=== PATIENT | male | born 1970 | race Caucasian/White ===

== ENCOUNTER 2017-07-25 07:45 | Outpatient (RCR) | payer MEDICARE ==
[~2017-07-25 07:45] MED LIST: ALOPHEN PILLS5 MG; ASPIR-LOW81 MG PO; ASPIR-TRIN325 MG PO; BACTRIM 400-801 EACH; BACTRIM DS TAB1 EACH PO; BUPROBAN150 MG; CEPHALEXIN500 M1; CHLORDIAZEPOX-1 EACH; CIPRO500 MG PO; CLOPIDOGREL75 MG PO; COLACE50 MG PO; COMBIVENT INH14.7 GM; HUMULIN N100 UNIT/1; HYDROCODON-ACE1 EAC9 PO; LEVAQUIN500 MG PO; LIPITOR20 MG; METFORMIN HCL500 MG PO; METOPROLOL SUCC25 MG; NEURONTIN300 MG PO; NICODERM CQ1 EACH TP; NITROGLYCERIN0.4 MG; PANTOPRAZOLE SO20 MG; PEPCID20 MG PO; ZYRTEC10 M3
[2017-07-25] MEDS ORDERED: LIDOCAINE 2% /EPINEPHRINE 20 ML SDV INJ ONE (13:36)
[2017-07-25] MEDS ORDERED: LIDOCAINE VISC 2% SOLN 15 ML UDC ONE (13:36)
== END 2017-08-04 ==
LOC: WCC 07:45
PROVIDERS: ATTEND Plastic Surgery
DX: T87.89 Other complications of amputation stump (principal); E11.649 Type 2 diabetes mellitus with hypoglycemia without coma; E11.59 Type 2 diabetes mellitus with other circulatory complications; L97.529 Non-pressure chronic ulcer of other part of left foot with unspecified severity; S31.829A Unspecified open wound of left buttock, initial encounter; B96.89 Other specified bacterial agents as the cause of diseases classified elsewhere; I10 Essential (primary) hypertension; I70.202 Unspecified atherosclerosis of native arteries of extremities, left leg; I79.8 Other disorders of arteries, arterioles and capillaries in diseases classified elsewhere; I87.2 Venous insufficiency (chronic) (peripheral)
CPT/HCPCS: 11042; 99204; J2001

== ENCOUNTER 2019-06-06 22:50 | Inpatient (IN) | payer MEDICARE ==
[~2019-06-06] VITALS: Ht 185.4 cm; Wt 95.3 kg
--- OUTSIDE RECORDS SUMMARY | 2019-06-06 22:57 | XMS REPORT ---
Author Author [facility] Address Unknown Phone Unavailable Care Team Providers Care Fur Cleaner Name Role Phone Unavailable Unavailable Payers Payer Name Policy Type Policy Number Effective Date Expiration Date Problems This patient has no known problems. Allergies, Adverse Reactions, Alerts Allergy Name Allergy Type Status Severity Reaction(s) Onset Date Inactive Date Treating Clinician Comments No Known Allergies DA Active U 2019-01-30 00:00:00 No Known Allergies DA Active U 2013-10-11 00:00:00 Medications This patient has no known medications. Encounters Start Date/Time End Date/Time Encounter Type Admission Type Attending Clinicians Care Facility Care Department Encounter ID 2018-12-23 12:46:00 2018-12-23 10:37:00 Inpatient [id number] 2018-10-23 20:46:00 2018-10-23 18:14:00 Inpatient [facility]10 Results Test Description Test Time Test Comments Text Results Atomic Results Result Comments GLUBED 2019-02-02 12:23:00 GLUBED (test code=GLUBED) 167 MG/DL 70-110 Performed by certified yarn mercerizer operator at [facility] CBC W/AUTO [id number] 08:00:00* Test Item Value Reference Range Comments WHITE BLOOD CELL (test code=WBC) 4.61 x10 3/uL 4.5-11.0 RED BLOOD CELL (test code=RBC) 3.38 x10 6/uL 4.00-5.60 HEMOGLOBIN (test code=HGB) 8.3 g/dL 12.5-16.9 HEMATOCRIT (test code=HCT) 26.7 % 37.5-50.7 MEAN CELL VOLUME (test code=MCV) 79.0 fL 81.0-99.0 MEAN CELL HGB (test code=MCH) 24.6 pg 27.0-33.0 MEAN CELL HGB CONCETRATION (test code=MCHC) 31.1 g/dL 33.0-37.0 RED CELL DISTRIBUTION WIDTH CV (test code=RDW) 15.9 % 11.5-14.5 RED CELL DISTRIBUTION WIDTH SD (test code=RDW-SD) 45.4 fL 37.0-54.0 PLATELET COUNT (test code=PLT) 392 x10 3/uL 150-400 MEAN PLATELET VOLUME (test code=MPV) 9.7 fL 7.0-9.0 NEUTROPHIL % (test code=NT%) 58.8 % 56.0-77.0 IMMATURE GRANULOCYTE % (test code=IG%) 0.9 % 0.0-2.0 LYMPHOCYTE % (test code=LY%) 27.1 % 14.0-32.0 MONOCYTE % (test code=MO%) 8.0 % 4.8-9.0 EOSINOPHIL % (test code=EO%) 4.3 % 0.3-3.7 BASOPHIL % (test code=BA%) 0.9 % 0.0-2.0 NUCLEATED RBC % (test code=NRBC%) 0.0 % 0-0 NEUTROPHIL # (test code=NT#) 2.71 x10 3/uL 2.0-7.6 IMMATURE GRANULOCYTE # (test code=IG#) 0.04 x10 3/uL 0.00-0.03 LYMPHOCYTE # (test code=LY#) 1.25 x10 3/uL 1.0-3.8 MONOCYTE # (test code=MO#) 0.37 x10 3/uL 0.1-0.8 EOSINOPHIL # (test code=EO#) 0.20 x10 3/uL 0.0-0.2 BASOPHIL # (test code=BA#) 0.04 x10 3/uL 0.0-0.2 NUCLEATED RBC # (test code=NRBC#) 0.00 x10 3/uL 0.0-0.1 MANUAL DIFF REQUIRED (test code=MDIFF) NO COMMENTS: Daily while on [id number] 07:52:00* Test Item Value Reference Range Comments VANCOMYCIN (test code=VANCO) 17.6 mcg/mL [id number] 07:31:00* Test Item Value Reference Range Comments GLUBED (test code=GLUBED) 160 MG/DL 70-110 Performed by certified yarn mercerizer operator at [facility] [id number] 20:28:00* Test Item Value Reference Range Comments GLUBED (test code=GLUBED) 222 MG/DL 70-110 Performed by certified yarn mercerizer operator at [facility] [id number] 16:52:00* Test Item Value Reference Range Comments PREALBUMIN (test code=PREALB) 13.4 mg/dL 16.0-40.0 VITAMIN D [id number] 16:52:00* Test Item Value Reference Range Comments VITAMIN D 25-HYDROXY (test code=VITD25) 7.8 ng/mL 30-100 [id number] 16:31:00* Test Item Value Reference Range Comments GLUBED (test code=GLUBED) 184 MG/DL 70-110 Performed by certified yarn mercerizer operator at [facility] VANCOMYCIN [id number] 14:27:00* Test Item Value Reference Range Comments VANCOMYCIN TROUGH (test code=VANCT) 30.2 mcg/mL 10.0-20.0 10-15 mcg/mL - Cellulitis, Urinary Tract Infection. 15-20 mcg/mL - Bacteremia, Infective Endocarditis, Meningitis, Osteomyelitis, Pneumonia, Severe Skin/Soft- Tissue Infection, Spinal Abscess. COMMENTS: HOLD VANCOMYCIN DOSE IF LEVEL >16, CALL PHARMACY FOR DOSE [id number] 14:25:00* Test Item Value Reference Range Comments PREALBUMIN (test code=PREALB) 13.4 mg/dL 16.0-40.0 VITAMIN D [id number] 14:25:00* Test Item Value Reference Range Comments VITAMIN D 25-HYDROXY (test code=VITD25) ng/mL 30-100 COMPREHENSIVE METABOLIC [id number] 14:18:00* Test Item Value Reference Range Comments SODIUM (test code=NA) 139 mEq/L 134-147 POTASSIUM (test code=K) 3.6 mEq/L 3.4-5.0 CHLORIDE (test code=CL) 108 mEq/L 100-108 CARBON DIOXIDE (test code=CO2) 28 mEq/L 21-33 ANION GAP (test code=GAP) 7 0-20 GLUCOSE (test code=GLU) 214 mg/dL 70-110 BLOOD UREA NITROGEN (test code=BUN) 10 mg/dL 7-18 GLOMERULAR FILTRATION RATE (test code=GFR) 90.8 95-105 Units of measure=ml/min/1.73 m2 CREATININE (test code=CREAT) 0.9 mg/dL 0.6-1.3 TOTAL PROTEIN (test code=PROT) 5.0 g/dL 6.4-8.2 ALBUMIN (test code=ALB) 1.40 g/dL 3.4-5.0 CALCIUM (test code=CA) 7.7 mg/dL 8.0-10.5 BILIRUBIN TOTAL (test code=BILT) 0.2 MG/DL <1.5 SGOT/AST (test code=AST) 16 IUnit/L 15-37 SGPT/ALT (test code=ALT) 12 IUnit/L 15-65 ALKALINE PHOSPHATASE TOTAL (test code=ALKP) 74 IUnit/L 20-125 CBC W/AUTO [id number] 14:01:00* Test Item Value Reference Range Comments WHITE BLOOD CELL (test code=WBC) 5.00 x10 3/uL 4.5-11.0 RED BLOOD CELL (test code=RBC) 3.50 x10 6/uL 4.00-5.60 HEMOGLOBIN (test code=HGB) 8.6 g/dL 12.5-16.9 HEMATOCRIT (test code=HCT) 27.7 % 37.5-50.7 MEAN CELL VOLUME (test code=MCV) 79.1 fL 81.0-99.0 MEAN CELL HGB (test code=MCH) 24.6 pg 27.0-33.0 MEAN CELL HGB CONCETRATION (test code=MCHC) 31.0 g/dL 33.0-37.0 RED CELL DISTRIBUTION WIDTH CV (test code=RDW) 15.9 % 11.5-14.5 RED CELL DISTRIBUTION WIDTH SD (test code=RDW-SD) 45.2 fL 37.0-54.0 PLATELET COUNT (test code=PLT) 434 x10 3/uL 150-400 MEAN PLATELET VOLUME (test code=MPV) 9.7 fL 7.0-9.0 NEUTROPHIL % (test code=NT%) 69.0 % 56.0-77.0 IMMATURE GRANULOCYTE % (test code=IG%) 0.6 % 0.0-2.0 LYMPHOCYTE % (test code=LY%) 19.6 % 14.0-32.0 MONOCYTE % (test code=MO%) 6.4 % 4.8-9.0 EOSINOPHIL % (test code=EO%) 3.6 % 0.3-3.7 BASOPHIL % (test code=BA%) 0.8 % 0.0-2.0 NUCLEATED RBC % (test code=NRBC%) 0.0 % 0-0 NEUTROPHIL # (test code=NT#) 3.45 x10 3/uL 2.0-7.6 IMMATURE GRANULOCYTE # (test code=IG#) 0.03 x10 3/uL 0.00-0.03 LYMPHOCYTE # (test code=LY#) 0.98 x10 3/uL 1.0-3.8 MONOCYTE # (test code=MO#) 0.32 x10 3/uL 0.1-0.8 EOSINOPHIL # (test code=EO#) 0.18 x10 3/uL 0.0-0.2 BASOPHIL # (test code=BA#) 0.04 x10 3/uL 0.0-0.2 NUCLEATED RBC # (test code=NRBC#) 0.00 x10 3/uL 0.0-0.1 MANUAL DIFF REQUIRED (test code=MDIFF) NO COMMENTS: Daily while on [id number] 12:55:00* Test Item Value Reference Range Comments GLUBED (test code=GLUBED) 221 MG/DL 70-110 Performed by certified yarn mercerizer operator at [facility] [id number] 07:33:00* Test Item Value Reference Range Comments GLUBED (test code=GLUBED) 183 MG/DL 70-110 Performed by certified yarn mercerizer operator at [facility] [id number] 23:42:00* Test Item Value Reference Range Comments GLUBED (test code=GLUBED) 165 MG/DL 70-110 Performed by certified yarn mercerizer operator at [facility] [id number] 17:55:00* Test Item Value Reference Range Comments GLUBED (test code=GLUBED) 213 MG/DL 70-110 Performed by certified yarn mercerizer operator at [facility] PROTHROMBIN [id number] 17:08:00* Test Item Value Reference Range Comments PROTHROMBIN TIME PATIENT (test code=PTP) 11.7 SECONDS 9.3-12.9 INTERNATIONAL NORMAL RATIO (test code=INR) 1.1 0.8-1.2 TARGET INR BY INDICATION Indication INR1. Prophylaxis of venous thrombosis 2.0 - 3.0 (orthopedic surgery), Prophylaxis of venous thrombosis (other than high-risk surgery), Treatment of Deep Vein Thrombosis/Pulmonary Embolism, Prevention of systemic embolism - Tissue heart valves, Acute Myocardial Infarction (to prevent systemic embolism), Valvular heart disease, Atrial Fibrillation, Bileaflet mechanical valve in aortic position.2. Mechanical prosthetic valves (high risk), 2.5 - 3.5 Presence of Lupus Anticoagulant or Antiphospholipid Antibodies, Prevention of systemic embolism - Acute Myocardial Infarction (to prevent recurrent infarct). COMMENTS: IF NOT ALREADY DONE WITHIN THE LAST 24 HOURSTHROMBOPLASTIN TIME [id number] 17:08:00* Test Item Value Reference Range Comments THROMBOPLASTIN TIME PARTIAL (test code=PTT) 31.5 Seconds 25.0-39.5 Therapeutic Range: 50.4 - 88.3 Seconds Effective 06/20/2018 COMMENTS: IF NOT ALREADY DONE WITHIN THE LAST 24 HOURSCBC W/AUTO [id number] 16:39:00* Test Item Value Reference Range Comments WHITE BLOOD CELL (test code=WBC) 5.89 x10 3/uL 4.5-11.0 RED BLOOD CELL (test code=RBC) 3.76 x10 6/uL 4.00-5.60 HEMOGLOBIN (test code=HGB) 9.2 g/dL 12.5-16.9 HEMATOCRIT (test code=HCT) 30.1 % 37.5-50.7 MEAN CELL VOLUME (test code=MCV) 80.1 fL 81.0-99.0 MEAN CELL HGB (test code=MCH) 24.5 pg 27.0-33.0 MEAN CELL HGB CONCETRATION (test code=MCHC) 30.6 g/dL 33.0-37.0 RED CELL DISTRIBUTION WIDTH CV (test code=RDW) 15.4 % 11.5-14.5 RED CELL DISTRIBUTION WIDTH SD (test code=RDW-SD) 44.1 fL 37.0-54.0 PLATELET COUNT (test code=PLT) 458 x10 3/uL 150-400 MEAN PLATELET VOLUME (test code=MPV) 9.6 fL 7.0-9.0 NEUTROPHIL % (test code=NT%) 66.1 % 56.0-77.0 IMMATURE GRANULOCYTE % (test code=IG%) 0.5 % 0.0-2.0 LYMPHOCYTE % (test code=LY%) 22.6 % 14.0-32.0 MONOCYTE % (test code=MO%) 7.3 % 4.8-9.0 EOSINOPHIL % (test code=EO%) 2.5 % 0.3-3.7 BASOPHIL % (test code=BA%) 1.0 % 0.0-2.0 NUCLEATED RBC % (test code=NRBC%) 0.0 % 0-0 NEUTROPHIL # (test code=NT#) 3.89 x10 3/uL 2.0-7.6 IMMATURE GRANULOCYTE # (test code=IG#) 0.03 x10 3/uL 0.00-0.03 LYMPHOCYTE # (test code=LY#) 1.33 x10 3/uL 1.0-3.8 MONOCYTE # (test code=MO#) 0.43 x10 3/uL 0.1-0.8 EOSINOPHIL # (test code=EO#) 0.15 x10 3/uL 0.0-0.2 BASOPHIL # (test code=BA#) 0.06 x10 3/uL 0.0-0.2 NUCLEATED RBC # (test code=NRBC#) 0.00 x10 3/uL 0.0-0.1 MANUAL DIFF REQUIRED (test code=MDIFF) NO COMMENTS: IF NOT ALREADY DONE WITHIN THE LAST 24 [id number] 13:44:00 * Test Item Value Reference Range Comments GLUBED (test code=GLUBED) 196 MG/DL 70-110 Performed by certified yarn mercerizer operator at [facility] [id number] 11:54:00* Test Item Value Reference Range Comments GLUBED (test code=GLUBED) 192 MG/DL 70-110 Performed by certified yarn mercerizer operator at [facility] [id number] 08:33:00* Test Item Value Reference Range Comments GLUBED (test code=GLUBED) 241 MG/DL 70-110 Performed by certified yarn mercerizer operator at [facility] BASIC METABOLIC [id number] 07:55:00* Test Item Value Reference Range Comments SODIUM (test code=NA) 141 mEq/L 134-147 POTASSIUM (test code=K) 3.1 mEq/L 3.4-5.0 CHLORIDE (test code=CL) 109 mEq/L 100-108 CARBON DIOXIDE (test code=CO2) 28 mEq/L 21-33 ANION GAP (test code=GAP) 7 0-20 GLUCOSE (test code=GLU) 221 mg/dL 70-110 BLOOD UREA NITROGEN (test code=BUN) 11 mg/dL 7-18 GLOMERULAR FILTRATION RATE (test code=GFR) 90.8 95-105 Units of measure=ml/min/1.73 m2 CREATININE (test code=CREAT) 0.9 mg/dL 0.6-1.3 CALCIUM (test code=CA) 7.6 mg/dL 8.0-10.5 [id number] 21:13:00* Test Item Value Reference Range Comments GLUBED (test code=GLUBED) 240 MG/DL 70-110 Performed by certified yarn mercerizer operator at [facility] BASIC METABOLIC [id number] 12:38:00* Test Item Value Reference Range Comments SODIUM (test code=NA) 141 mEq/L 134-147 POTASSIUM (test code=K) 3.1 mEq/L 3.4-5.0 CHLORIDE (test code=CL) 108 mEq/L 100-108 CARBON DIOXIDE (test code=CO2) 29 mEq/L 21-33 ANION GAP (test code=GAP) 7 0-20 GLUCOSE (test code=GLU) 221 mg/dL 70-110 BLOOD UREA NITROGEN (test code=BUN) 10 mg/dL 7-18 GLOMERULAR FILTRATION RATE (test code=GFR) 80.4 95-105 Units of measure=ml/min/1.73 m2 CREATININE (test code=CREAT) 1.0 mg/dL 0.6-1.3 CALCIUM (test code=CA) 7.6 mg/dL 8.0-10.5 BASIC METABOLIC [id number] 12:35:00* Test Item Value Reference Range Comments SODIUM (test code=NA) 141 mEq/L 134-147 POTASSIUM (test code=K) 3.1 mEq/L 3.4-5.0 CHLORIDE (test code=CL) 108 mEq/L 100-108 CARBON DIOXIDE (test code=CO2) 29 mEq/L 21-33 ANION GAP (test code=GAP) 7 0-20 GLUCOSE (test code=GLU) 221 mg/dL 70-110 BLOOD UREA NITROGEN (test code=BUN) 10 mg/dL 7-18 GLOMERULAR FILTRATION RATE (test code=GFR) 95-105 CREATININE (test code=CREAT) mg/dL 0.6-1.3 CALCIUM (test code=CA) 7.6 mg/dL 8.0-10.5 CBC W/AUTO [id number] 12:28:00* Test Item Value Reference Range Comments WHITE BLOOD CELL (test code=WBC) 5.87 x10 3/uL 4.5-11.0 RED BLOOD CELL (test code=RBC) 3.69 x10 6/uL 4.00-5.60 HEMOGLOBIN (test code=HGB) 9.0 g/dL 12.5-16.9 HEMATOCRIT (test code=HCT) 29.2 % 37.5-50.7 MEAN CELL VOLUME (test code=MCV) 79.1 fL 81.0-99.0 MEAN CELL HGB (test code=MCH) 24.4 pg 27.0-33.0 MEAN CELL HGB CONCETRATION (test code=MCHC) 30.8 g/dL 33.0-37.0 RED CELL DISTRIBUTION WIDTH CV (test code=RDW) 15.0 % 11.5-14.5 RED CELL DISTRIBUTION WIDTH SD (test code=RDW-SD) 42.8 fL 37.0-54.0 PLATELET COUNT (test code=PLT) 443 x10 3/uL 150-400 MEAN PLATELET VOLUME (test code=MPV) 9.8 fL 7.0-9.0 NEUTROPHIL % (test code=NT%) 70.3 % 56.0-77.0 IMMATURE GRANULOCYTE % (test code=IG%) 0.7 % 0.0-2.0 LYMPHOCYTE % (test code=LY%) 18.2 % 14.0-32.0 MONOCYTE % (test code=MO%) 6.1 % 4.8-9.0 EOSINOPHIL % (test code=EO%) 3.7 % 0.3-3.7 BASOPHIL % (test code=BA%) 1.0 % 0.0-2.0 NUCLEATED RBC % (test code=NRBC%) 0.0 % 0-0 NEUTROPHIL # (test code=NT#) 4.12 x10 3/uL 2.0-7.6 IMMATURE GRANULOCYTE # (test code=IG#) 0.04 x10 3/uL 0.00-0.03 LYMPHOCYTE # (test code=LY#) 1.07 x10 3/uL 1.0-3.8 MONOCYTE # (test code=MO#) 0.36 x10 3/uL 0.1-0.8 EOSINOPHIL # (test code=EO#) 0.22 x10 3/uL 0.0-0.2 BASOPHIL # (test code=BA#) 0.06 x10 3/uL 0.0-0.2 NUCLEATED RBC # (test code=NRBC#) 0.00 x10 3/uL 0.0-0.1 MANUAL DIFF REQUIRED (test code=MDIFF) NO [id number] 07:46:00* Test Item Value Reference Range Comments GLUBED (test code=GLUBED) 179 MG/DL 70-110 Performed by certified yarn mercerizer operator at [facility] [id number] 23:32:00* Test Item Value Reference Range Comments GLUBED (test code=GLUBED) 266 MG/DL 70-110 Performed by certified yarn mercerizer operator at [facility] [id number] 23:31:00* Test Item Value Reference Range Comments GLUBED (test code=GLUBED) 240 MG/DL 70-110 Performed by certified yarn mercerizer operator at [facility] [id number] 16:38:00* Test Item Value Reference Range Comments GLUBED (test code=GLUBED) 230 MG/DL 70-110 Performed by certified yarn mercerizer operator at [facility] - XR CHEST 1 [id number] 15:14:00 FAX: Amos Bishop DO [phone] [place]: St: [facility] FAX: Juan David Jean DO [phone] Name: VANDANA PASCAL JR [facility] : 1970 Age/S: 48/M [address] [place] [address] Unit #: [id number] Loc: G.ERS2 [place] [address] Phys: Amos Bush DO Acct: [id number] Dis Date: Status: REG ER PHONE #: [phone] Exam Date: 01/29/2019 1510 FAX #: [phone] Reason: s/p R IJ place EXAMS: CPT CODE: [id number] XR CHEST 1 V 88313 CHEST, ONE VIEW: HISTORY: Postcentral line placement COMPARISON EXAM(S): Chest x-rays dating back to 01/25/2019 FINDINGS: This single portable view was obtained at 1459 hours on 01/29/2019 and shows placement of a right IJ central line with tip of the catheter projected over the middle third of the SVC. No evidence of pneumothorax. No acute infiltrates or effusions. Vascular stents are projected over the right side of the superior mediastinum and the rig ht axillary vessels. IMPRESSION: 1. Placement of right IJ line as described above, without complication. 2. No acute changes identified. 3. No other change compared to the examination obtained earlier today. SL:01 at 1514 Reported and signed by: Clay Crews M.D. CC: Amos Bush DO; Juan David Mckeon DO Technologist: LIZZY Cotto RT(R); RT Harshal(R) Trnmdjeanette Date/Time/By: 01/29/2019 (4207) : By: Abdon PAGE 1 [place] d Report DRUGS OF ABUSE SCREEN [id number] 12:58:00* Test Item Value Reference Range Comments URN COCAINE (test code=COCAURN) POSITIVE NEGATIVE URN CANNABINOIDS (test code=CANNABURN) POSITIVE NEGATIVE URN AMPHETAMINE (test code=AMPHETURN) NEGATIVE NEGATIVE URN BARBITURATE (test code=BARBITURN) NEGATIVE NEGATIVE URN BENZODIAZEPINE (test code=BENZOURN) POSITIVE NEGATIVE Cut-off value:200 ng/mL URN OPIATES (test code=OPIATURN) POSITIVE NEGATIVE Cut-off value:2000 ng/mL URN PHENCYCLIDINE (PCP) (test code=PHENCURN) NEGATIVE NEGATIVE Cutoffs:Barbiturates 200 ng/mLBenzodiazepines 200 ng/mLTHC Cannabinoids 50 ng/mLOpiates(Morphine) 2000 ng/mLAmphetamine 1000 ng/mLCocaine 300 ng/mLPCP phencyclidine 25 ng/mL Unconfirmed screening results shouldnot be used for non-medical purposes. DRUGS OF ABUSE SCREEN [id number] 12:53:00* Test Item Value Reference Range Comments URN COCAINE (test code=COCAURN) NEGATIVE URN CANNABINOIDS (test code=CANNABURN) NEGATIVE URN AMPHETAMINE (test code=AMPHETURN) NEGATIVE NEGATIVE URN BARBITURATE (test code=BARBITURN) NEGATIVE NEGATIVE URN BENZODIAZEPINE (test code=BENZOURN) NEGATIVE URN OPIATES (test code=OPIATURN) NEGATIVE URN PHENCYCLIDINE (PCP) (test code=PHENCURN) NEGATIVE NEGATIVE Cutoffs:Barbiturates 200 ng/mLBenzodiazepines 200 ng/mLTHC Cannabinoids 50 ng/mLOpiates(Morphine) 2000 ng/mLAmphetamine 1000 ng/mLCocaine 300 ng/mLPCP phencyclidine 25 ng/mL Unconfirmed screening results shouldnot be used for non-medical purposes. UA RFLX MICR CULT IF [id number] 12:24:00* Test Item Value Reference Range Comments UA COLOR (test code=COLU) YELLOW YEL/STRAW UA APPEARANCE (test code=APPU) SL CLOUDY CLEAR UA GLUCOSE DIPSTICK (test code=DGLUU) 3+ NEGATIVE UA BILIRUBIN DIPSTICK (test code=BILU) NEGATIVE NEGATIVE UA KETONE DIPSTICK (test code=KETU) NEGATIVE NEGATIVE UA SPECIFIC GRAVITY (test code=SGU) 1.027 1.005-1.030 UA BLOOD DIPSTICK (test code=TABITHA) NEGATIVE NEGATIVE UA PH DIPSTICK (test code=RAJESH) 6.0 5.0-7.0 UA PROTEIN DIPSTICK (test code=PROU) 3+ NEGATIVE UA UROBILINIOGEN DIPSTICK (test code=URO) 0.2 mg/dL 0.2-1.0 UA NITRITE DIPSTICK (test code=BRIE) NEGATIVE NEGATIVE UA LEUKOCYTE ESTERASE DIPSTICK (test code=LEUU) NEGATIVE NEGATIVE UA WBC (test code=WBCU) 10-20 WBC/HPF 0-3 UA RBC (test code=RBCU) 4-10 RBC/HPF 0-3 UA WBC NO REFLEX (test code=WBCUCL) 10-20 WBC/HPF 0-3 UA BACTERIA (test code=BACU) NONE SEEN /HPF NONE SEEN UA SQUAMOUS CELLS (test code=SQU) 0-5 /HPF NONE SEEN UA MUCUS (test code=MUCU) TRACE /LPF NONE SEEN Indication for culture: Sev. Sepsis-no other src Dysuria/FrequencySpecim en Description: BAGGED- XR CHEST 1 [id number] 12:12:00 FAX: Amos Bishop DO [phone] [place]: St: [facility] FAX: Juan David Jean DO [phone] Name: VANDANA PASCAL JR [facility] : 1970 Age/S: 48/M [address] [place] [address] Unit #: [id number] Loc: G.ERS2 [facility] [address] Phys: Amos Bush DO Acct: [id number] Dis Date: Status: REG ER PHONE #: [phone] Exam Date: 01/29/2019 1159 FAX #: [phone] Reason: sepsis EXAMS: CPT CODE: [id number] XR CHEST 1 V 92451 Study: - XR CHEST 1 V 01/29/2019 10:34 AM Patient Name: VANDANA PASCAL JR MR: [id number] : 1970; Age: 48 years y/o Male Ordering Physician: Amos Bush DO Clinical Indic ation: sepsis Comparison: January 28, 2019 x-ray FI NDINGS LUNGS: The lungs are clear of consolidation, pleural effusi on, and pneumothorax. HEART AND MEDIASTINUM: Normal size hea rt. 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 LINES: None. OSSEOUS STRUCTURES: No fracture, dislocation, or suspicious focal osse ous lesion. OTHER: Vascular stents in the region of the right subc lavian artery.. IMPRESSION: No acute a bnormality as above discussed. SL: [id number] at 12 12 Reported and signed by: Chase Lopez M.D. CC: Maximo Bush DO; Juan David Mckeon DO Technologist: Joanne webb RT(R)R Trnscrd Date/Time/By: 01/29/2019 (12 12) : By: [email or web address] Orig Print D/T: S: 01/29/2019 (8815) PAGE 1 Signed Report CBC W/AUTO [id number] 11:26:00* Test Item Value Reference Range Comments WHITE BLOOD CELL (test code=WBC) 6.20 x10 3/uL 4.5-11.0 RED BLOOD CELL (test code=RBC) 4.16 x10 6/uL 4.00-5.60 HEMOGLOBIN (test code=HGB) 10.2 g/dL 12.5-16.9 HEMATOCRIT (test code=HCT) 32.7 % 37.5-50.7 MEAN CELL VOLUME (test code=MCV) 78.6 fL 81.0-99.0 MEAN CELL HGB (test code=MCH) 24.5 pg 27.0-33.0 MEAN CELL HGB CONCETRATION (test code=MCHC) 31.2 g/dL 33.0-37.0 RED CELL DISTRIBUTION WIDTH CV (test code=RDW) 14.8 % 11.5-14.5 RED CELL DISTRIBUTION WIDTH SD (test code=RDW-SD) 42.2 fL 37.0-54.0 PLATELET COUNT (test code=PLT) 549 x10 3/uL 150-400 MEAN PLATELET VOLUME (test code=MPV) 9.9 fL 7.0-9.0 NEUTROPHIL % (test code=NT%) 73.8 % 56.0-77.0 IMMATURE GRANULOCYTE % (test code=IG%) 0.5 % 0.0-2.0 LYMPHOCYTE % (test code=LY%) 17.9 % 14.0-32.0 MONOCYTE % (test code=MO%) 5.0 % 4.8-9.0 EOSINOPHIL % (test code=EO%) 1.8 % 0.3-3.7 BASOPHIL % (test code=BA%) 1.0 % 0.0-2.0 NUCLEATED RBC % (test code=NRBC%) 0.0 % 0-0 NEUTROPHIL # (test code=NT#) 4.58 x10 3/uL 2.0-7.6 IMMATURE GRANULOCYTE # (test code=IG#) 0.03 x10 3/uL 0.00-0.03 LYMPHOCYTE # (test code=LY#) 1.11 x10 3/uL 1.0-3.8 MONOCYTE # (test code=MO#) 0.31 x10 3/uL 0.1-0.8 EOSINOPHIL # (test code=EO#) 0.11 x10 3/uL 0.0-0.2 BASOPHIL # (test code=BA#) 0.06 x10 3/uL 0.0-0.2 NUCLEATED RBC # (test code=NRBC#) 0.00 x10 3/uL 0.0-0.1 MANUAL DIFF REQUIRED (test code=MDIFF) NO TROPONIN-I [id number] 11:22:00* Test Item Value Reference Range Comments TROPONIN-I RAPID (test code=TROPIRAP) 0.07 ng/mL 0.00-0.08 Performed by certified yarn mercerizer operator at [facility] Negative: <=0.08 Positive: >=0.09An elevated troponin value alone is not sufficient todiagnose a myocardial infarction. Rather, the patient sclinical presentation (history, physical exam) and ECGshould be used in conjunction with troponin in thediagnostic evaluation of suspected myocardial infarction. Aserial sampling protocol is recommended to facilitate the identification of temporal changes in troponin levels characteristic of NE. LACTIC ACID [id number] 11:15:00* Test Item Value Reference Range Comments LACTIC ACID POC (test code=LACTP) 1.8 MMOL/L 0.90-1.70 Performed by certified yarn mercerizer operator at [facility] CHEMISTRY 8 [id number] 11:14:00* Test Item Value Reference Range Comments ISTAT-SODIUM (test code=NAP) MMOL/L 134-147 ISTAT-POTASSIUM (test code=KP) MMOL/L 3.4-5.0 ISTAT-CHLORIDE (test code=CLP) MMOL/L 100-108 ISTAT CARBON DIOXIDE (test code=ISTAT-CO2) mmol/L 21-33 ISTAT CALCIUM IONIZED (test code=ISTAT-CORY) MG/DL 1.12-1.32 ISTAT-GLUCOSE (test code=GLUP) MG/DL 70-110 ISTAT-BUN (test code=BUNP) MG/DL 7-18 BEDSIDE CREATININE (test code=CREATBED) MG/DL 0.6-1.3 GLOMERULAR FILTRATION RATE POC (test code=GFRBED) 69 ML/MIN CHEMISTRY 8 [id number] 11:14:00* Test Item Value Reference Range Comments ISTAT-SODIUM (test code=NAP) 138 MMOL/L 134-147 ISTAT-POTASSIUM (test code=KP) 3.3 MMOL/L 3.4-5.0 ISTAT-CHLORIDE (test code=CLP) 101 MMOL/L 100-108 Performed by certified yarn mercerizer operator at [facility] ISTAT CARBON DIOXIDE (test code=ISTAT-CO2) 27.0 mmol/L 21-33 ISTAT CALCIUM IONIZED (test code=ISTAT-CORY) 1.09 MG/DL 1.12-1.32 ISTAT-GLUCOSE (test code=GLUP) 274 MG/DL 70-110 ISTAT-BUN (test code=BUNP) 11 MG/DL 7-18 BEDSIDE CREATININE (test code=CREATBED) 1.2 MG/DL 0.6-1.3 GLOMERULAR FILTRATION RATE POC (test code=GFRBED) 69 ML/MIN BASIC METABOLIC [id number] 14:39:00* Test Item Value Reference Range Comments SODIUM (test code=NA) 140 mmol/L 136-145 POTASSIUM (test code=K) 3.3 mmol/L 3.5-5.1 CHLORIDE (test code=CL) 105.0 mmol/L 98-107 CARBON DIOXIDE (test code=CO2) 29.0 mmol/L 21-32 ANION GAP (test code=GAP) 9.3 10-20 GLUCOSE (test code=GLU) 198 mg/dL 74-106 BLOOD UREA NITROGEN (test code=BUN) 14 mg/dL 7-18 GLOMERULAR FILTRATION RATE (test code=GFR) > 60 mL/min >=60 Estimated GFR by using Modified MDRD formula.Chronic kidney disease is defined as either kidney damageor GFR <60 mL/min/1.73 m2 for >3 months. CREATININE (test code=CREAT) 1.00 mg/dL 0.7-1.3 BUN/CREATININE RATIO (test code=BUN/CREA) 13.3 10-20 CALCIUM (test code=CA) 8.5 mg/dL 8.5-10.1 [id number] 14:39:00* Test Item Value Reference Range Comments TROPONIN-I (test code=TROPI) 0.237 ng/mL 0-0.045 Results called to [id number] by RICH 01/28/19 1438Critical results verified and read back by Nurse? Y LACTIC [id number] 14:29:00* Test Item Value Reference Range Comments LACTIC ACID (test code=LACT) 1.9 mmol/L 0.4-1.9 BASIC METABOLIC [id number] 14:28:00* Test Item Value Reference Range Comments SODIUM (test code=NA) 140 mmol/L 136-145 POTASSIUM (test code=K) 3.3 mmol/L 3.5-5.1 CHLORIDE (test code=CL) 105.0 mmol/L 98-107 CARBON DIOXIDE (test code=CO2) mmol/L 21-32 ANION GAP (test code=GAP) 10-20 GLUCOSE (test code=GLU) mg/dL 74-106 BLOOD UREA NITROGEN (test code=BUN) mg/dL 7-18 GLOMERULAR FILTRATION RATE (test code=GFR) mL/min >=60 CREATININE (test code=CREAT) mg/dL 0.7-1.3 BUN/CREATININE RATIO (test code=BUN/CREA) 10-20 CALCIUM (test code=CA) mg/dL 8.5-10.1 [id number] 14:28:00* Test Item Value Reference Range Comments TROPONIN-I (test code=TROPI) ng/mL 0-0.045 - CT LOWER EXTRM W/O C [id number] 14:27:00 Name: VANDANA PASCAL JR [facility] : 1970 Age/S: 48 / M [place] Unit #: [id number] Loc: [place] [address] Phys: Evi Spencer DO Acct: [id number] Dis Date: Status: ADM IN PHONE #: [phone] Exam Date: 01/28/2019 1350 FAX #: [phone] Reason: leg pain EXAMS: CPT CODE: [id number] CT LOWER EXTRM W/[place] [address] HISTORY: wound TECHNIQUE: 2.[address] of the right femur/thigh without contrast. Sagittal and coronal reformatted images were generated. Automated exposure control for dose reduction. COMPARISON: 01/23/19 FINDINGS: Right femur and other regional osseous structures are intact. No cortical erosion or periosteal reaction. Mild degenerative changes of the right hip and knee. Right thigh musculature is grossly normal in configuration. Right inguinal and medial distal thigh wound with assoc iated skin magalis. Small soft tissue emphysema within the medial thigh. N o fluid collection. Diffuse subcutaneous edema. Femorofemoral bypass; unab le to evaluate without contrast. Left popliteal artery stent. IMPRESSION: No significant interval change. Right inguinal and medial distal thigh wound with subcutaneous edema. No assoc iated fluid collection. LOCATION: LP at 1427 Reported and signed by: Amalia Patel D.O. CC: Juan David Verde; Evi Spencer DO Technologist:Ruchi hong RT(R),CT CTDI: DLP: Trnscb Date/Time: 01/28/2019 (1427) siddhartha [email or web address] Orig Print D/T: S: 01/28/2019 (4299) PAGE 1 Signed Report - CT LOWER EXTRM W/O C [id number] 14:27:00 Name: VANDANA PASCAL JR [facility] : 1970 Age/S: 48 / M [place] Unit #: [id number] Loc: [place] [address] Phys: Evi Spencer DO Acct: [id number] Dis Date: Status: ADM IN PHONE #: [phone] Exam Date: 01/28/2019 1350 FAX #: [phone] Reason: wound EXAMS: CPT CODE: [id number] [place] LOWER EXTRM W/[place] [address] HISTORY: wound TECHNIQUE: 2.[address] of the left femur/thigh without contrast. Sagittal and coronal reformatted images were generated. Automated exposure control for dose reduction. COMPARISON: 01/23/19 FINDINGS: Left femur and other regional osseous structures are intact. No cortical erosion or periosteal reaction. Mild degenerative changes of the left hip and knee. Left thigh musculature is grossly normal in configuration. Left inguinal and medial distal thigh wound with associated skin magalis. Small soft tissue emphysema within the medial thigh. No fluid collection. Diffuse subcutaneous edema. Femorofemoral bypass; unable to evaluate without contrast. IMPRESSION: No significant interval change. Left inguinal and medial distal thigh wound with subcutaneous edema. No associated fluid collection. LOCATION: LP at 1427 Reported and signed by: Amalia Patel D.O. CC: Juan David Mckeon; Evi Spencer DO Technologist:Ruchi Sánchez RT(R),CT CTDI: DLP: Trnscb Date/Time: 01/28/2019 (3875) [email or web address] Orig Print D/T: S: 01/28/2019 (9960) PAGE 1 Signed Report CBC W/O [id number] 14:10:00* Test Item Value Reference Range Comments WHITE BLOOD CELL (test code=WBC) 6.9 K/mm3 4.5-12.5 RED BLOOD CELL (test code=RBC) 3.99 mill/mm3 4.0-5.8 HEMOGLOBIN (test code=HGB) 9.6 gram/dL 13.0-17.5 HEMATOCRIT (test code=HCT) 31.5 % 42.0-52.0 MEAN CELL VOLUME (test code=MCV) 78.9 fL 80-98 MEAN CELL HGB (test code=MCH) 24.1 picogram 27.0-33.0 MEAN CELL HGB CONCETRATION (test code=MCHC) 30.5 gram/dL 33.0-36.0 RED CELL DISTRIBUTION WIDTH (test code=RDW) 14.8 % 11.6-16.2 PLATELET COUNT (test code=PLT) 454 K/mm3 150-450 MEAN PLATELET VOLUME (test code=MPV) 9.7 fL 6.7-11.0 - XR CHEST 1 [id number] 13:02:00 FAX: Juan David Jean DO [phone] [place]: St: [facility] FAX: Evi Spencer DO Name: VANDANA PASCAL JR [facility] : 1970 Age/S: 48/M [address] [facility] Unit #: [id number] Loc: [place] [address] Phys: Evi Spencer DO Acct: [id number] Dis Date: Status: REG ER PHONE #: [phone] Exam Date: 01/28/2019 1252 FAX #: [phone] Reason: CHEST PAIN EXAMS: CPT CODE: [id number] XR CHEST 1 V 07002 HISTORY: CHEST PAIN TECHNIQUE: AP chest x-ray COMPARISON: 01/26/19 FINDINGS: No airspace consolidation or pleural effusion. Normal heart size. Mediastinal silhouette is unremarkable. Thoracic spondylosis. Sternotomy wires. IMPRESSION: No radiographic evidence of acute cardiopulmonary process. LOCATION: at 1302 Reported and signed by: Amalia Patel D.O. CC: Guera león,Juan David Stark; Evi Spencer DO Technologist: Usha GOMEZ( R) Trnmdrd Date/Time/By: 01/28/2019 (1302) : By: [email or web address] PAGE 1 Signed Report [id number] 17:10:00* Test Item Value Reference Range Comments GLUBED (test code=GLUBED) 152 MG/DL 70-110 Performed by certified yarn mercerizer operator at [facility] THROMBOPLASTIN TIME [id number] 13:37:00* Test Item Value Reference Range Comments THROMBOPLASTIN TIME PARTIAL (test code=PTT) 95.7 Seconds 25.0-39.5 Therapeutic Range: 50.4 - 88.3 Seconds Effective 06/20/2018 [id number] 11:57:00* Test Item Value Reference Range Comments GLUBED (test code=GLUBED) 102 MG/DL 70-110 Performed by certified yarn mercerizer operator at [facility] - XR CHEST 1 [id number] 09:36:00 FAX: Juan David Jean DO [phone] [place]: St: ADM FAX: Eleazar Edmonds I [phone] FAX: Patricia Broussard MD Name: VANDANA PASCAL [facility] : 1970 Age/S: 48/M [address] [place] [address] Unit #: [id number] Loc: G.3306 [place] [address] Phys: Patricia Broussard MD Acct: [id number] Dis Date: Status: ADM IN ONE #: [phone] Exam Date: 01/26/2019 0512 FAX #: [phone] Reason: evaluate for pleural effusions EXAMS: CPT CODE: [id number] XR CHEST 1 V 39676 Clinical Indic ation: Pleural effusion. Comparison: 01/25/2019. Impressio n: Chest, single view. Stable position of right internal jugular centra l venous catheter. Prior median sternotomy. Probable small layering le ft pleural effusion. No definite right pleural effusion. Heart size is normal. No pneumothorax or consolidation. Right upper extremity vascu lar stents. SL: [id number] Electronically Signed by Katerine Galvez on 01/26 at 0936 Reported and signed by: Milagro delgado M.D. CC: Juan David Mckeon DO; Eleazar Blair MD; Patricia Broussard MD Technologist: RT Merna(Beau) Trnscrd Date/Time/By: 01/26/2019 (0936) : By: [email or web address] Orig Print D/T: S: 01/26/2019 (2019) PAGE 1 Signed Report THROMBOPLASTIN TIME PARTIAL 2019-01-26 05:28:00* Test Item Value Reference Range Comments THROMBOPLASTIN TIME PARTIAL (test code=PTT) 51.8 Seconds 25.0-39.5 Therapeutic Range: 50.4 - 88.3 Seconds Effective 06/20/2018 BASIC METABOLIC [id number] 05:20:00* Test Item Value Reference Range Comments SODIUM (test code=NA) 142 mEq/L 134-147 POTASSIUM (test code=K) 3.4 mEq/L 3.4-5.0 CHLORIDE (test code=CL) 109 mEq/L 100-108 CARBON DIOXIDE (test code=CO2) 26 mEq/L 21-33 ANION GAP (test code=GAP) 10 0-20 GLUCOSE (test code=GLU) 107 mg/dL 70-110 BLOOD UREA NITROGEN (test code=BUN) 23 mg/dL 7-18 GLOMERULAR FILTRATION RATE (test code=GFR) 72.1 95-105 Units of measure=ml/min/1.73 m2 CREATININE (test code=CREAT) 1.1 mg/dL 0.6-1.3 CALCIUM (test code=CA) 7.8 mg/dL 8.0-10.5 BASIC METABOLIC [id number] 05:17:00* Test Item Value Reference Range Comments SODIUM (test code=NA) 142 mEq/L 134-147 POTASSIUM (test code=K) 3.4 mEq/L 3.4-5.0 CHLORIDE (test code=CL) 109 mEq/L 100-108 CARBON DIOXIDE (test code=CO2) 26 mEq/L 21-33 ANION GAP (test code=GAP) 10 0-20 GLUCOSE (test code=GLU) 107 mg/dL 70-110 BLOOD UREA NITROGEN (test code=BUN) 23 mg/dL 7-18 GLOMERULAR FILTRATION RATE (test code=GFR) 95-105 CREATININE (test code=CREAT) mg/dL 0.6-1.3 CALCIUM (test code=CA) 7.8 mg/dL 8.0-10.5 CBC W/AUTO [id number] 05:12:00* Test Item Value Reference Range Comments WHITE BLOOD CELL (test code=WBC) 6.89 x10 3/uL 4.5-11.0 RED BLOOD CELL (test code=RBC) 3.29 x10 6/uL 4.00-5.60 HEMOGLOBIN (test code=HGB) 8.0 g/dL 12.5-16.9 HEMATOCRIT (test code=HCT) 26.8 % 37.5-50.7 MEAN CELL VOLUME (test code=MCV) 81.5 fL 81.0-99.0 MEAN CELL HGB (test code=MCH) 24.3 pg 27.0-33.0 MEAN CELL HGB CONCETRATION (test code=MCHC) 29.9 g/dL 33.0-37.0 RED CELL DISTRIBUTION WIDTH CV (test code=RDW) 15.4 % 11.5-14.5 RED CELL DISTRIBUTION WIDTH SD (test code=RDW-SD) 46.4 fL 37.0-54.0 PLATELET COUNT (test code=PLT) 329 x10 3/uL 150-400 MEAN PLATELET VOLUME (test code=MPV) 10.2 fL 7.0-9.0 NEUTROPHIL % (test code=NT%) 72.3 % 56.0-77.0 IMMATURE GRANULOCYTE % (test code=IG%) 0.9 % 0.0-2.0 LYMPHOCYTE % (test code=LY%) 14.2 % 14.0-32.0 MONOCYTE % (test code=MO%) 8.1 % 4.8-9.0 EOSINOPHIL % (test code=EO%) 3.6 % 0.3-3.7 BASOPHIL % (test code=BA%) 0.9 % 0.0-2.0 NUCLEATED RBC % (test code=NRBC%) 0.0 % 0-0 NEUTROPHIL # (test code=NT#) 4.98 x10 3/uL 2.0-7.6 IMMATURE GRANULOCYTE # (test code=IG#) 0.06 x10 3/uL 0.00-0.03 LYMPHOCYTE # (test code=LY#) 0.98 x10 3/uL 1.0-3.8 MONOCYTE # (test code=MO#) 0.56 x10 3/uL 0.1-0.8 EOSINOPHIL # (test code=EO#) 0.25 x10 3/uL 0.0-0.2 BASOPHIL # (test code=BA#) 0.06 x10 3/uL 0.0-0.2 NUCLEATED RBC # (test code=NRBC#) 0.00 x10 3/uL 0.0-0.1 MANUAL DIFF REQUIRED (test code=MDIFF) NO [id number] 21:44:00* Test Item Value Reference Range Comments GLUBED (test code=GLUBED) 106 MG/DL 70-110 Performed by certified yarn mercerizer operator at [facility] [id number] 20:23:00* Test Item Value Reference Range Comments GLUBED (test code=GLUBED) 155 MG/DL 70-110 Performed by certified yarn mercerizer operator at [facility] BASIC METABOLIC [id number] 18:14:00* Test Item Value Reference Range Comments SODIUM (test code=NA) 140 mEq/L 134-147 POTASSIUM (test code=K) 3.6 mEq/L 3.4-5.0 CHLORIDE (test code=CL) 108 mEq/L 100-108 CARBON DIOXIDE (test code=CO2) 27 mEq/L 21-33 ANION GAP (test code=GAP) 9 0-20 GLUCOSE (test code=GLU) 156 mg/dL 70-110 BLOOD UREA NITROGEN (test code=BUN) 26 mg/dL 7-18 GLOMERULAR FILTRATION RATE (test code=GFR) 50.4 95-105 Units of measure=ml/min/1.73 m2 CREATININE (test code=CREAT) 1.5 mg/dL 0.6-1.3 CALCIUM (test code=CA) 7.4 mg/dL 8.0-10.5 THROMBOPLASTIN TIME [id number] 18:11:00* Test Item Value Reference Range Comments THROMBOPLASTIN TIME PARTIAL (test code=PTT) 66.6 Seconds 25.0-39.5 Therapeutic Range: 50.4 - 88.3 Seconds Effective 06/20/2018 THROMBOPLASTIN TIME [id number] 12:31:00* Test Item Value Reference Range Comments THROMBOPLASTIN TIME PARTIAL (test code=PTT) 80.4 Seconds 25.0-39.5 Therapeutic Range: 50.4 - 88.3 Seconds Effective 06/20/2018 [id number] 12:21:00* Test Item Value Reference Range Comments GLUBED (test code=GLUBED) 163 MG/DL 70-110 Performed by certified yarn mercerizer operator at [facility] - XR CHEST 1 [id number] 09:19:00 FAX: Juan David Jean DO [phone] [place]: St: ADM FAX: Eleazar Edmonds I [phone] FAX: Patricia Broussard MD Name: PASCALVANDANA JR [facility] : 1970 Age/S: 48/M [address] [place] [address] Unit #: [id number] Loc: G.3306 [place] [address] Phys: Patricia Broussard MD Acct: [id number] Dis Date: Status: ADM IN PH ONE #: [phone] Exam Date: 01/25/2019 0530 FAX #: [phone] Reason: evaluate for pleural effusions EXAMS: CPT CODE: [id number] XR CHEST 1 V 16708 CLINICAL HISTO RY:evaluate for pleural effusions COMPARISON:January 24, 2019 at 0435 Frontal film of the chest performed at 0435 on January 25 019 demonstrates an endotracheal tube with its tip 7 cm above the level of shayy. Nasogastric tube is seen with its tip not included on the image. Sternotomy sutures are noted. IJ catheter tip is in superior vena cava. Monitor leads are in place. Vascular stent involving the right up per extremity and mediastinum are present. Heart size is normal an d there is better aeration of right lung compared to previous examination. Increased opacity in left hemithorax compatible with pleural effusion is present. There is overall better aeration of both lungs. IMPRESSION: 1. Supporting lines and tubes are present. 2. Bet ter aeration of both lungs compared to previous examination. Electro nically Signed by Katerine Marques on 01/25/2019 at 0919 Reported and signed by: Alok Marques M.D. CC: Juan David Mckeon DO; Eleazar Blair MD; Patricia Broussard MD Technologist: Sapna Paez, RT(R); Reva cShmidt, RT(R) Trnscrd Date/Time/By: 01/25/2019 (09) : By: Paulino GARNICA Orig Print D/T: S: 01/25/2019 (09) PAG E 1 Signed Report MAGNESIUM 2019-01-25 09:03:00* Test Item Value Reference Range Comments MAGNESIUM (test code=MAG) 1.70 mg/dL 1.8-2.4 BASIC METABOLIC [id number] 05:53:00* Test Item Value Reference Range Comments SODIUM (test code=NA) 140 mEq/L 134-147 POTASSIUM (test code=K) 3.7 mEq/L 3.4-5.0 CHLORIDE (test code=CL) 106 mEq/L 100-108 CARBON DIOXIDE (test code=CO2) 26 mEq/L 21-33 ANION GAP (test code=GAP) 12 0-20 GLUCOSE (test code=GLU) 154 mg/dL 70-110 BLOOD UREA NITROGEN (test code=BUN) 26 mg/dL 7-18 GLOMERULAR FILTRATION RATE (test code=GFR) 43.6 95-105 Units of measure=ml/min/1.73 m2 CREATININE (test code=CREAT) 1.7 mg/dL 0.6-1.3 CALCIUM (test code=CA) 7.6 mg/dL 8.0-10.5 THROMBOPLASTIN TIME [id number] 05:40:00* Test Item Value Reference Range Comments THROMBOPLASTIN TIME PARTIAL (test code=PTT) 53.8 Seconds 25.0-39.5 Therapeutic Range: 50.4 - 88.3 Seconds Effective 06/20/2018 CBC W/AUTO [id number] 05:27:00* Test Item Value Reference Range Comments WHITE BLOOD CELL (test code=WBC) 9.70 x10 3/uL 4.5-11.0 RED BLOOD CELL (test code=RBC) 3.42 x10 6/uL 4.00-5.60 HEMOGLOBIN (test code=HGB) 8.5 g/dL 12.5-16.9 HEMATOCRIT (test code=HCT) 27.9 % 37.5-50.7 MEAN CELL VOLUME (test code=MCV) 81.6 fL 81.0-99.0 MEAN CELL HGB (test code=MCH) 24.9 pg 27.0-33.0 MEAN CELL HGB CONCETRATION (test code=MCHC) 30.5 g/dL 33.0-37.0 RED CELL DISTRIBUTION WIDTH CV (test code=RDW) 15.7 % 11.5-14.5 RED CELL DISTRIBUTION WIDTH SD (test code=RDW-SD) 47.2 fL 37.0-54.0 PLATELET COUNT (test code=PLT) 390 x10 3/uL 150-400 MEAN PLATELET VOLUME (test code=MPV) 10.1 fL 7.0-9.0 NEUTROPHIL % (test code=NT%) 79.9 % 56.0-77.0 IMMATURE GRANULOCYTE % (test code=IG%) 0.8 % 0.0-2.0 LYMPHOCYTE % (test code=LY%) 10.8 % 14.0-32.0 MONOCYTE % (test code=MO%) 7.3 % 4.8-9.0 EOSINOPHIL % (test code=EO%) 0.6 % 0.3-3.7 BASOPHIL % (test code=BA%) 0.6 % 0.0-2.0 NUCLEATED RBC % (test code=NRBC%) 0.0 % 0-0 NEUTROPHIL # (test code=NT#) 7.74 x10 3/uL 2.0-7.6 IMMATURE GRANULOCYTE # (test code=IG#) 0.08 x10 3/uL 0.00-0.03 LYMPHOCYTE # (test code=LY#) 1.05 x10 3/uL 1.0-3.8 MONOCYTE # (test code=MO#) 0.71 x10 3/uL 0.1-0.8 EOSINOPHIL # (test code=EO#) 0.06 x10 3/uL 0.0-0.2 BASOPHIL # (test code=BA#) 0.06 x10 3/uL 0.0-0.2 NUCLEATED RBC # (test code=NRBC#) 0.00 x10 3/uL 0.0-0.1 MANUAL DIFF REQUIRED (test code=MDIFF) NO THROMBOPLASTIN TIME [id number] 23:50:00* Test Item Value Reference Range Comments THROMBOPLASTIN TIME PARTIAL (test code=PTT) 61.8 Seconds 25.0-39.5 Therapeutic Range: 50.4 - 88.3 Seconds Effective 06/20/2018 [id number] 23:42:00* Test Item Value Reference Range Comments GLUBED (test code=GLUBED) 144 MG/DL 70-110 Performed by certified yarn mercerizer operator at [facility] BASIC METABOLIC [id number] 18:39:00* Test Item Value Reference Range Comments SODIUM (test code=NA) 140 mEq/L 134-147 POTASSIUM (test code=K) 3.8 mEq/L 3.4-5.0 CHLORIDE (test code=CL) 104 mEq/L 100-108 CARBON DIOXIDE (test code=CO2) 25 mEq/L 21-33 ANION GAP (test code=GAP) 15 0-20 GLUCOSE (test code=GLU) 173 mg/dL 70-110 BLOOD UREA NITROGEN (test code=BUN) 19 mg/dL 7-18 GLOMERULAR FILTRATION RATE (test code=GFR) 54.6 95-105 Units of measure=ml/min/1.73 m2 CREATININE (test code=CREAT) 1.4 mg/dL 0.6-1.3 CALCIUM (test code=CA) 7.7 mg/dL 8.0-10.5 BASIC METABOLIC [id number] 18:36:00* Test Item Value Reference Range Comments SODIUM (test code=NA) 140 mEq/L 134-147 POTASSIUM (test code=K) 3.8 mEq/L 3.4-5.0 CHLORIDE (test code=CL) 104 mEq/L 100-108 CARBON DIOXIDE (test code=CO2) 25 mEq/L 21-33 ANION GAP (test code=GAP) 15 0-20 GLUCOSE (test code=GLU) 173 mg/dL 70-110 BLOOD UREA NITROGEN (test code=BUN) 19 mg/dL 7-18 GLOMERULAR FILTRATION RATE (test code=GFR) 95-105 CREATININE (test code=CREAT) mg/dL 0.6-1.3 CALCIUM (test code=CA) 7.7 mg/dL 8.0-10.5 [id number] 18:18:00* Test Item Value Reference Range Comments GLUBED (test code=GLUBED) 170 MG/DL 70-110 Performed by certified yarn mercerizer operator at [facility] [id number] 12:49:00* Test Item Value Reference Range Comments POTASSIUM (test code=K) 3.8 mEq/L 3.4-5.0 COMMENTS: while on lasix gttTHROMBOPLASTIN TIME [id number] 12:40:00* Test Item Value Reference Range Comments THROMBOPLASTIN TIME PARTIAL (test code=PTT) 64.6 Seconds 25.0-39.5 Therapeutic Range: 50.4 - 88.3 Seconds Effective 06/20/2018 - XR CHEST 1 [id number] 08:35:00 FAX: Juan David Jean DO [phone] [place]: St: ADM FAX: Eleazar Edmonds I [phone] FAX: Patricia Broussard MD Name: SERA PASCAL JR [facility] : 1970 Age/S: 48/M [address] [place] [address] Unit #: [id number] Loc: G.3306 [place] [address] Phys: Patricia Broussard MD Acct: [id number] Dis Date: Status: ADM IN ONE #: [phone] Exam Date: 01/24/2019 0538 FAX #: [phone] Reason: evaluate for pleural effusions EXAMS: CPT CODE: [id number] XR CHEST 1 V 12625 Clinical Indic ation: Respiratory failure. Pleural effusions. Comparison: 01/23/2019. Impression: Chest, single view. Stable position of right internal jugular central venous catheter, endotracheal tube, and NG tube. Bilateral layering pleural effusions are unchanged from prior. Bilat eral lung base opacities are unchanged. No pneumothorax. Right upper e xtremity and mediastinal vascular stents. Overall appearance is similar to prior. SL: [id number] E lectronically Signed by Katerine Galvez on 2018 at 0835 Reported and signed by: Milagro borden M.D. CC: Juan David Mckeon DO; Eleazar Estrada; Patricia Broussard MD Technologist: Clarence Chu RT(R); Sapna Paez RT(R) Trnscrd Date/Time/By: 01/24/2019 (834) : By: [email or web address] Orig Print D/T: S: 01/24/2019 (08) PAGE 1 Signed Report BASIC METABOLIC [id number] 06:41:00* Test Item Value Reference Range Comments SODIUM (test code=NA) 139 mEq/L 134-147 POTASSIUM (test code=K) 3.7 mEq/L 3.4-5.0 CHLORIDE (test code=CL) 104 mEq/L 100-108 CARBON DIOXIDE (test code=CO2) 28 mEq/L 21-33 ANION GAP (test code=GAP) 11 0-20 GLUCOSE (test code=GLU) 152 mg/dL 70-110 BLOOD UREA NITROGEN (test code=BUN) 19 mg/dL 7-18 GLOMERULAR FILTRATION RATE (test code=GFR) 59.4 95-105 Units of measure=ml/min/1.73 m2 CREATININE (test code=CREAT) 1.3 mg/dL 0.6-1.3 CALCIUM (test code=CA) 7.9 mg/dL 8.0-10.5 [id number] 06:41:00* Test Item Value Reference Range Comments VANCOMYCIN (test code=VANCO) 20.2 mcg/mL [id number] 06:41:00* Test Item Value Reference Range Comments PREALBUMIN (test code=PREALB) 13.0 mg/dL 16.0-40.0 VITAMIN D [id number] 06:41:00* Test Item Value Reference Range Comments VITAMIN D 25-HYDROXY (test code=VITD25) 5.8 ng/mL 30-100 THROMBOPLASTIN TIME [id number] 05:14:00* Test Item Value Reference Range Comments THROMBOPLASTIN TIME PARTIAL (test code=PTT) 89.4 Seconds 25.0-39.5 Therapeutic Range: 50.4 - 88.3 Seconds Effective 06/20/2018 BASIC METABOLIC [id number] 05:13:00* Test Item Value Reference Range Comments SODIUM (test code=NA) 139 mEq/L 134-147 POTASSIUM (test code=K) 3.7 mEq/L 3.4-5.0 CHLORIDE (test code=CL) 104 mEq/L 100-108 CARBON DIOXIDE (test code=CO2) 28 mEq/L 21-33 ANION GAP (test code=GAP) 11 0-20 GLUCOSE (test code=GLU) 152 mg/dL 70-110 BLOOD UREA NITROGEN (test code=BUN) 19 mg/dL 7-18 GLOMERULAR FILTRATION RATE (test code=GFR) 59.4 95-105 Units of measure=ml/min/1.73 m2 CREATININE (test code=CREAT) 1.3 mg/dL 0.6-1.3 CALCIUM (test code=CA) 7.9 mg/dL 8.0-10.5 [id number] 05:13:00* Test Item Value Reference Range Comments VANCOMYCIN (test code=VANCO) 20.2 mcg/mL [id number] 05:13:00* Test Item Value Reference Range Comments PREALBUMIN (test code=PREALB) 13.0 mg/dL 16.0-40.0 VITAMIN D [id number] 05:13:00* Test Item Value Reference Range Comments VITAMIN D 25-HYDROXY (test code=VITD25) ng/mL 30-100 BASIC METABOLIC [id number] 05:03:00* Test Item Value Reference Range Comments SODIUM (test code=NA) 139 mEq/L 134-147 POTASSIUM (test code=K) 3.7 mEq/L 3.4-5.0 CHLORIDE (test code=CL) 104 mEq/L 100-108 CARBON DIOXIDE (test code=CO2) 28 mEq/L 21-33 ANION GAP (test code=GAP) 11 0-20 GLUCOSE (test code=GLU) 152 mg/dL 70-110 BLOOD UREA NITROGEN (test code=BUN) 19 mg/dL 7-18 GLOMERULAR FILTRATION RATE (test code=GFR) 95-105 CREATININE (test code=CREAT) mg/dL 0.6-1.3 CALCIUM (test code=CA) 7.9 mg/dL 8.0-10.5 [id number] 05:03:00* Test Item Value Reference Range Comments VANCOMYCIN (test code=VANCO) mcg/mL [id number] 05:03:00* Test Item Value Reference Range Comments PREALBUMIN (test code=PREALB) mg/dL 16.0-40.0 VITAMIN D 65-[id number] 05:03:00* Test Item Value Reference Range Comments VITAMIN D 25-HYDROXY (test code=VITD25) ng/mL 30-100 CBC W/AUTO [id number] 04:59:00* Test Item Value Reference Range Comments WHITE BLOOD CELL (test code=WBC) 6.78 x10 3/uL 4.5-11.0 RED BLOOD CELL (test code=RBC) 3.80 x10 6/uL 4.00-5.60 HEMOGLOBIN (test code=HGB) 9.5 g/dL 12.5-16.9 HEMATOCRIT (test code=HCT) 30.4 % 37.5-50.7 MEAN CELL VOLUME (test code=MCV) 80.0 fL 81.0-99.0 MEAN CELL HGB (test code=MCH) 25.0 pg 27.0-33.0 MEAN CELL HGB CONCETRATION (test code=MCHC) 31.3 g/dL 33.0-37.0 RED CELL DISTRIBUTION WIDTH CV (test code=RDW) 15.8 % 11.5-14.5 RED CELL DISTRIBUTION WIDTH SD (test code=RDW-SD) 45.8 fL 37.0-54.0 PLATELET COUNT (test code=PLT) 489 x10 3/uL 150-400 MEAN PLATELET VOLUME (test code=MPV) 9.8 fL 7.0-9.0 NEUTROPHIL % (test code=NT%) 70.6 % 56.0-77.0 IMMATURE GRANULOCYTE % (test code=IG%) 0.3 % 0.0-2.0 LYMPHOCYTE % (test code=LY%) 18.3 % 14.0-32.0 MONOCYTE % (test code=MO%) 6.5 % 4.8-9.0 EOSINOPHIL % (test code=EO%) 3.1 % 0.3-3.7 BASOPHIL % (test code=BA%) 1.2 % 0.0-2.0 NUCLEATED RBC % (test code=NRBC%) 0.0 % 0-0 NEUTROPHIL # (test code=NT#) 4.79 x10 3/uL 2.0-7.6 IMMATURE GRANULOCYTE # (test code=IG#) 0.02 x10 3/uL 0.00-0.03 LYMPHOCYTE # (test code=LY#) 1.24 x10 3/uL 1.0-3.8 MONOCYTE # (test code=MO#) 0.44 x10 3/uL 0.1-0.8 EOSINOPHIL # (test code=EO#) 0.21 x10 3/uL 0.0-0.2 BASOPHIL # (test code=BA#) 0.08 x10 3/uL 0.0-0.2 NUCLEATED RBC # (test code=NRBC#) 0.00 x10 3/uL 0.0-0.1 MANUAL DIFF REQUIRED (test code=MDIFF) NO [id number] 02:04:00* Test Item Value Reference Range Comments POTASSIUM (test code=K) 3.8 mEq/L 3.4-5.0 COMMENTS: while on lasix [id number] 00:59:00* Test Item Value Reference Range Comments GLUBED (test code=GLUBED) 122 MG/DL 70-110 Performed by certified yarn mercerizer operator at [facility] THROMBOPLASTIN TIME [id number] 23:15:00* Test Item Value Reference Range Comments THROMBOPLASTIN TIME PARTIAL (test code=PTT) 75.8 Seconds 25.0-39.5 Therapeutic Range: 50.4 - 88.3 Seconds Effective 06/20/2018 COMMENTS: DRAW PTT 6 HOURS AFTER INITIATION OF [id number] 20:05:00* Test Item Value Reference Range Comments POTASSIUM (test code=K) 4.0 mEq/L 3.4-5.0 COMMENTS: while on lasix [id number] 20:05:00* Test Item Value Reference Range Comments VANCOMYCIN (test code=VANCO) 25.0 mcg/mL COMMENTS: while on lasix [id number] 19:58:00* Test Item Value Reference Range Comments POTASSIUM (test code=K) 4.0 mEq/L 3.4-5.0 COMMENTS: while on lasix [id number] 19:58:00* Test Item Value Reference Range Comments VANCOMYCIN (test code=VANCO) mcg/mL COMMENTS: while on lasix gttPROTHROMBIN [id number] 18:05:00* Test Item Value Reference Range Comments PROTHROMBIN TIME PATIENT (test code=PTP) 13.6 SECONDS 9.3-12.9 INTERNATIONAL NORMAL RATIO (test code=INR) 1.2 0.8-1.2 TARGET INR BY INDICATION Indication INR1. Prophylaxis of venous thrombosis 2.0 - 3.0 (orthopedic surgery), Prophylaxis of venous thrombosis (other than high-risk surgery), Treatment of Deep Vein Thrombosis/Pulmonary Embolism, Prevention of systemic embolism - Tissue heart valves, Acute Myocardial Infarction (to prevent systemic embolism), Valvular heart disease, Atrial Fibrillation, Bileaflet mechanical valve in aortic position.2. Mechanical prosthetic valves (high risk), 2.5 - 3.5 Presence of Lupus Anticoagulant or Antiphospholipid Antibodies, Prevention of systemic embolism - Acute Myocardial Infarction (to prevent recurrent infarct). COMMENTS: IF NOT ALREADY DONE WITHIN THE LAST 24 HOURSTHROMBOPLASTIN TIME [id number] 18:05:00* Test Item Value Reference Range Comments THROMBOPLASTIN TIME PARTIAL (test code=PTT) 41.1 Seconds 25.0-39.5 Therapeutic Range: 50.4 - 88.3 Seconds Effective 06/20/2018 COMMENTS: IF NOT ALREADY DONE WITHIN THE LAST 24 HOURS- CT ANGIO [id number] 16:36:00 Name: SERA PASCAL JR [facility] [place] : 1970 Age/S: 48 / M [address] [place] [address] Blvd Unit #: [id number] Loc: [place] [address] Phys: Patricia Broussard MD Acct: [id number] Dis Date: Status: ADM IN PHONE #: [phone] Exam Date: 01/23/2019 1416 FAX #: [phone] Reason: evaluate patency of aorta bifem and fem-pop EXAMS: CPT CODE: [id number] CT ANGIO CHEST 41322 STUDY: - CTA ABD AORTA IF LWEX RO, - CT ANGIO CHEST 01/23/2019 7:30 AM Ordering Physician: Patricia Broussard MD Patient Name: SERA PASCAL JR MR: [id number] : 1970; Age: 48 years y/o Male Clinical Indication: Decreased pulses to the lower extremity evaluate patency of aorta bifem and fem-pop Comparison: August 23, 2016 TECHNIQUE: Sequential trans-axial images of the chest, abdomen and pelvis with lower extremities runoff were obtained with a multi-detector helical CT after iodinated contrast administration. Axial, coronal and sagittal reconstructions were obtained Additionally, two-dimensional or three-dimensional reformatted images were prepared. IV CONTRAST: 100 mL Isovue DLP: 2146 mGy-cm CT imaging performed at this location utilizes radiation dose optimization techniques which include one or more of the following: -Automated exposure control -Adjustment of the mA and/or kV according to patient size -Use of iterative reconstruction technique ARTERIAL EVALUATION: Right IJ line is seen with tip within the SVC. Right subclavian stents are seen which are patent. Right axillary artery stent is occluded with distal opacification likely via collaterals. Mild to moderate atherosclerosis of the thoracic aorta without aneurysm. Celiac artery, superior mesenteric artery and renal arteries are patent. Infrarenal abdominal stent graft extending into the left common iliac artery is patent. Chronically thrombosed right iliac limb. Left to right femorofemoral bypass graft is occluded. Moderate atherosclerotic changes are seen in the left superficial femoral artery without occlusion. Trace flow noted in the left proximal and mid popliteal artery with no flow di stally at the level of the stump. Trace flow is seen in the right mid thigh profunda femoris branches with no flow in the distal thigh up to the stump. PAGE 1 Signed Report (CONTINUED) Name: SERA PASCAL JR [facility] : 1970 Age/S: 48 / M [address] Unit #: [id number] Loc: [place] [address] Phys: Patricia Broussard MD Acct: [id number] Dis Date: Status: ADM IN PHONE #: [phone] Exam Date: 01/23/20191415 FAX #: [phone] Reason: evaluate patency of aorta bifem and fem- pop EXAMS: CPT CODE: [id number] CT ANGIO CHEST 18388 < Continued> Lymph Nodes: Small mediastinal nodes. Endotracheal tube tip is above the shayy. Heart, pericardium and aorta: The heart is normal in size. There are coronary artery calcifications. LUNGS: Moderate bilateral pleural effusions with atelectatic changes. Liver: Normal. Gallbladder: No calcified stones or wall thickening. Adrenals: Normal. Kidneys and ureters: Left kidney upper pole wedge-shaped low-attenuation changes are seen with some cortical thinning. No hydronephrosis. Spleen: Normal. Pancreas: Normal. Visualized Gastrointestinal tract: NG tube tip is within the stomach. Mild stomach wall thickening. No small bowel dilatation. No bowel obstruction. Peritoneum, mesentery and retroperitoneum: No free air, lymphadenopathy, ascites or loculated fluid. Reproductive organs: Prostate and seminal vesicles are unremarkable. Bladder: Decompressed by Nation catheter. Soft tissues: Small fluid collection is noted involving bilateral groin around the femorofemoral bypass graft. Body wall edema is seen. Bila teral medial thigh skin defects are seen with soft tissue gas. Below-knee amputation changes are seen. Bones: No acute abnormality. Age-rel ated degenerative findings. IMPRESSION: PAGE 2 Signed Report (CONTINUED) Name: SERA PASCAL JR [facility] : 1970 Ag e/S: 48 / M [address] [place], [place] [address]vd Unit #: [id number] Loc: [place] [address] Phys: Patricia Broussard MD Acct: [id number] Dis Date: Status: ADM IN PHONE #: [phone] Exam Date: 01/23/20191415 FAX #: [phone] Reason: evaluate patency of aorta bifem and fem-pop EXAMS: CPT CODE: [id number] CT ANGIO CHEST 19343 <Continued> 1. Occluded left to right femorofemoral bypass graft with no significant flow in the right thigh. 2. Bilateral medial thigh skin defects with soft tissue gas. Diffuse soft tissue edema. 3. Moderate bilateral pleural effusions with atelectatic changes. 4. Infarct versus pyelonephritis involving the upper pole of the left kidney. 5. Occluded stent within the right axillary artery with distal flow likely from collaterals. 6. 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 7. Moderate disease involving the left superficial femoral artery and popliteal artery. 8. Mild stomach wall thickening, which may represent gastritis. Significant findings were communicated to FARHAN Estrella for Patricia Broussard MD on 01/23/2019 4:25 PM. SL: [id number] Electronically Signed by Von Solis on at 1636 Reported and signed by: Mario Solis D.O. CC: Juan Davdi Mckeon DO; Eleazar Blair MD ; Patricia Broussard MD Technologist:Damion Pak RT(R)(CT) CTDI: DLP: Trnscb Date/Time: 01/23/2019 (1636) [id number] Orig P rint D/T: S: 01/23/2019 (1639) PAGE 3 Signed Report - CTA ABD AORTA IF LWEX [id number] 16:36:00 Name: PASCALSERA CHÁVEZ [facility] : 1970 Age/S: 48 / M [address] [place] [address] Blvd Unit #: [id number] Loc: [place] [address] Phys: Wili Broussard MD Acct: [id number] Di s Date: Status: ADM IN PHONE #: Exam Date: 01/23/2019 1416 FAX #: [phone] Reason: evaluate patency of aorta bifem and fem-pop EXAMS: CPT CODE: [id number] [place] [address] STUDY: - CTA ABD AORTA IF LWEX RO, - CT ANGIO CHEST 01/23/2019 7:30 AM Ordering Physician: Patricia Broussard MD Patient Name: SERA PASCAL JR MR: [id number] : 1970; Age: 48 years y/o Male Clinical Indication: Decreased pulses to the lower extremity evaluate patency of aorta bifem and fem-pop Comparison: August 23, 2016 TECHNIQUE: Seq uential trans-axial images of the chest, abdomen and pelvis with lower ext remities runoff were obtained with a multi-detector helical CT after iodin ated contrast administration. Axial, coronal and sagittal reconstructions were obtained Additionally, two-dimensional or three-dimensional reformatt ed images were prepared. IV CONTRAST: 100 mL Isovue DLP: 2146 mGy-cm CT imaging performed at this location utilizes ra diation dose optimization techniques which include one or more of the foll owing: -Automated exposure control -Adjustment of the mA and/or kV a ccording to patient size -Use of iterative reconstruction technique ARTERIAL EVALUATION: Right IJ line is seen with tip within the SV C. Right subclavian stents are seen which are patent. Right axillary art vaibhav stent is occluded with distal opacification likely via collaterals. M ild to moderate atherosclerosis of the thoracic aorta without aneurysm. Celiac artery, superior mesenteric artery and renal arteries are santos nt. Infrarenal abdominal stent graft extending into the left common iliac artery is patent. Chronically thrombosed right iliac limb. Left to right femorofemoral bypass graft is occluded. Moderate atherosclerotic changes are seen in the left superficial femoral artery without occlusion. Trace flow noted in the left proximal and mid popliteal artery with no flow di stally at the level of the stump. Trace flow is seen in the right mid thigh profunda femoris branches with no flow in the distal thigh up to the stump. PAGE 1 Signed Report (CONTINUED) Name: SERA PASCAL JR [facility] : 1970 Age/S: 48 / M [address] Unit #: [id number] Loc: [place] [address] Phys: Patricia Broussard MD Acct: [id number] Dis Date: Status: ADM IN PHONE #: [phone] Exam Date: 01/23/2019 1416 FAX #: [phone] Reason: evaluate patency of aorta bifem and fem- pop EXAMS: CPT CODE: [id number] [place] [address] < Continued> Lymph Nodes: Small mediastinal nodes. Endotracheal tube tip is above the shayy. Heart, pericardium and aorta: The heart is normal in size. There are coronary artery calcifications. LUNGS: Moderate bilateral pleural effusions with atelectatic changes. Liver: Normal. Gallbladder: No calcified stones or wall thickening. Adrenals: Normal. Kidneys and ureters: Left kidney upper pole wedge-shaped low-attenuation changes are seen with some cortical thinning. No hydronephrosis. Spleen: Normal. Pancreas: Normal. Visualized Gastrointestinal tract: NG tube tip is within the stomach. Mild stomach wall thickening. No small bowel dilatation. No bowel obstruction. Peritoneum, mesentery and retroperitoneum: No free air, lymphadenopathy, ascites or loculated fluid. Reproductive organs: Prostate and seminal vesicles are unremarkable. Bladder: Decompressed by Nation catheter. Soft tissues: Small fluid collection is noted involving bilateral groin around the femorofemoral bypass graft. Body wall edema is seen. Bila teral medial thigh skin defects are seen with soft tissue gas. Below-knee amputation changes are seen. Bones: No acute abnormality. Age-rel ated degenerative findings. IMPRESSION: PAGE 2 Signed Report (CONTINUED) Name: GWYNSERA [facility] : 1970 e/S: 48 / M [address] [place] [address] Unit #: [id number] Loc: [place] [address] Phys: Patricia Broussard MD Acct: [id number] Dis Date: Status: ADM IN PHONE #: [phone] Exam Date: 01/23/2019 1416 FAX #: [phone] Reason: evaluate patency of aorta bifem and fem-pop EXAMS: CPT CODE: [id number] [place] [address] <Continued> 1. Occluded left to right femorofemoral bypass graft with no significant flow in the right thigh. 2. Bilateral medial thigh skin defects with soft tissue gas. Diffuse soft tissue edema. 3. Moderate bilateral pleural effusions with atelectatic changes. 4. Infarct versus pyelonephritis involving the upper pole of the left kidney. 5. Occluded stent within the right axillary artery with distal flow likely from collaterals. 6. 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 7. Moderate disease involving the left superficial femoral artery and popliteal artery. 8. Mild stomach wall thickening, which may represent gastritis. Significant findings were communicated to FARHAN Estrella for Patricia Broussard MD on 01/23/2019 4:25 PM. SL: [id number] Electronically Signed by Von Solis on at 1636 Reported and signed by: Mario Solis D.O. CC: Juan David Mckeon DO; Eleazar Blair MD ; Patricia Broussard MD Technologist:Damion Pak, RT(R)(CT) CTDI: DLP: Trnscb Date/Time: 01/23/2019 (163) [email or web address] Orig P rint D/T: S: 01/23/2019 (4479) PAGE 3 Signed Report [id number] 15:05:00* Test Item Value Reference Range Comments POTASSIUM (test code=K) 3.4 mEq/L 3.4-5.0 COMMENTS: while on [facility] & SPECIMEN NOT LABLEDBY G.LAB.MR2 [id number] 11:36:00* Test Item Value Reference Range Comments GLUBED (test code=GLUBED) 96 MG/DL 70-110 Performed by certified yarn mercerizer operator at [facility] B-TYPE NATRIURETIC [id number] 10:22:00* Test Item Value Reference Range Comments B-TYPE NATRIURETIC PEPTIDE (test code=BNP) 236.0 PG/ML 0-100 CBC W/AUTO [id number] 08:37:00* Test Item Value Reference Range Comments WHITE BLOOD CELL (test code=WBC) 6.29 x10 3/uL 4.5-11.0 RED BLOOD CELL (test code=RBC) 3.62 x10 6/uL 4.00-5.60 HEMOGLOBIN (test code=HGB) 9.2 g/dL 12.5-16.9 HEMATOCRIT (test code=HCT) 29.2 % 37.5-50.7 MEAN CELL VOLUME (test code=MCV) 80.7 fL 81.0-99.0 MEAN CELL HGB (test code=MCH) 25.4 pg 27.0-33.0 MEAN CELL HGB CONCETRATION (test code=MCHC) 31.5 g/dL 33.0-37.0 RED CELL DISTRIBUTION WIDTH CV (test code=RDW) 15.6 % 11.5-14.5 RED CELL DISTRIBUTION WIDTH SD (test code=RDW-SD) 46.2 fL 37.0-54.0 PLATELET COUNT (test code=PLT) 412 x10 3/uL 150-400 MEAN PLATELET VOLUME (test code=MPV) 9.9 fL 7.0-9.0 NEUTROPHIL % (test code=NT%) 67.9 % 56.0-77.0 IMMATURE GRANULOCYTE % (test code=IG%) 0.6 % 0.0-2.0 LYMPHOCYTE % (test code=LY%) 19.2 % 14.0-32.0 MONOCYTE % (test code=MO%) 6.7 % 4.8-9.0 EOSINOPHIL % (test code=EO%) 4.5 % 0.3-3.7 BASOPHIL % (test code=BA%) 1.1 % 0.0-2.0 NUCLEATED RBC % (test code=NRBC%) 0.0 % 0-0 NEUTROPHIL # (test code=NT#) 4.27 x10 3/uL 2.0-7.6 IMMATURE GRANULOCYTE # (test code=IG#) 0.04 x10 3/uL 0.00-0.03 LYMPHOCYTE # (test code=LY#) 1.21 x10 3/uL 1.0-3.8 MONOCYTE # (test code=MO#) 0.42 x10 3/uL 0.1-0.8 EOSINOPHIL # (test code=EO#) 0.28 x10 3/uL 0.0-0.2 BASOPHIL # (test code=BA#) 0.07 x10 3/uL 0.0-0.2 NUCLEATED RBC # (test code=NRBC#) 0.00 x10 3/uL 0.0-0.1 MANUAL DIFF REQUIRED (test code=MDIFF) NO [id number] 08:20:00* Test Item Value Reference Range Comments TROPONIN-I (test code=TROPI) 0.033 ng/mL 0.000-0.045 Negative: <=0.045 Positive: >=0.046 Correlation with serial results, other cardiac markers andclinical findings is necessary to determine the clinicalsignificance of this result. Results using different methodologies should not be comparedto one another as quantitative results may vary by method. - XR CHEST 1 [id number] 06:20:00 FAX: Juan David Jean DO [phone] [place]: St: ADM FAX: Eleazar Edmonds I [phone] Name: SERA PASCAL [facility] : 1970 Age/S: 48/M [address] [place] [address] Unit #: [id number] Loc: [address] [place] [address] Phys: Eleazar Land MD Acct: [id number] Dis Date: Status: ADM IN PHONE #: [phone] Exam Date: 01/23/2019 05 FAX #: [phone] Reason: INTUBATED EXAMS: CPT CODE: [id number] XR CHEST 1 V 30779 EXAM: CR, XR chest one view: 01/23/2019, 0435 hours HISTORY: INTUBATED TECHNIQUE: 1 view of the chest. COMPARISON: 01/22/2019, 0426 hours FINDINGS: Endotracheal tube, nasogastric tube, right IJ venous catheter, cardiomediastinal silhouette and osseous structures are stable. Midline sternotomy clips are again seen. Stable bilateral perihilar and lower lobe opacities and bilateral pleural effusion since prior study. Vascular stent in the right axilla again seen. IMPRESSION: No appreciable interval change since prior study. SL: [[id number]-H] at 0620 Reported and signed by: Abdulkadir Bell M.D. CC: Juan David Mckeon DO; Eleazar Blair MD Technologist: Clarence Chu, RT(R); Sapna Paez, RT(R) Trnscrd Date/Time/By: 01/23/2019 (0620) : By: [email or web address] Orig Print D/T: S: 01/23/2019 (0663) PAGE 1 Signed Report BASIC METABOLIC PANEL 2019-01-23 06:13:00* Test Item Value Reference Range Comments SODIUM (test code=NA) 141 mEq/L 134-147 POTASSIUM (test code=K) 4.0 mEq/L 3.4-5.0 CHLORIDE (test code=CL) 109 mEq/L 100-108 CARBON DIOXIDE (test code=CO2) 27 mEq/L 21-33 ANION GAP (test code=GAP) 9 0-20 GLUCOSE (test code=GLU) 105 mg/dL 70-110 BLOOD UREA NITROGEN (test code=BUN) 17 mg/dL 7-18 GLOMERULAR FILTRATION RATE (test code=GFR) 72.1 95-105 Units of measure=ml/min/1.73 m2 CREATININE (test code=CREAT) 1.1 mg/dL 0.6-1.3 CALCIUM (test code=CA) 7.9 mg/dL 8.0-10.5 [id number] 06:13:00* Test Item Value Reference Range Comments PHOSPHOROUS (test code=PHOS) 3.9 MG/DL 2.5-4.9 [id number] 06:13:00* Test Item Value Reference Range Comments MAGNESIUM (test code=MAG) 1.80 mg/dL 1.8-2.4 [id number] 05:50:00* Test Item Value Reference Range Comments GLUBED (test code=GLUBED) 90 MG/DL 70-110 Performed by certified yarn mercerizer operator at [facility] [id number] 00:39:00* Test Item Value Reference Range Comments GLUBED (test code=GLUBED) 98 MG/DL 70-110 Performed by certified yarn mercerizer operator at [facility] BASIC METABOLIC [id number] 22:14:00* Test Item Value Reference Range Comments SODIUM (test code=NA) 141 mEq/L 134-147 POTASSIUM (test code=K) 3.5 mEq/L 3.4-5.0 CHLORIDE (test code=CL) 110 mEq/L 100-108 CARBON DIOXIDE (test code=CO2) 27 mEq/L 21-33 ANION GAP (test code=GAP) 8 0-20 GLUCOSE (test code=GLU) 117 mg/dL 70-110 BLOOD UREA NITROGEN (test code=BUN) 17 mg/dL 7-18 GLOMERULAR FILTRATION RATE (test code=GFR) 72.1 95-105 Units of measure=ml/min/1.73 m2 CREATININE (test code=CREAT) 1.1 mg/dL 0.6-1.3 CALCIUM (test code=CA) 7.6 mg/dL 8.0-10.5 BASIC METABOLIC [id number] 22:12:00* Test Item Value Reference Range Comments SODIUM (test code=NA) 141 mEq/L 134-147 POTASSIUM (test code=K) 3.5 mEq/L 3.4-5.0 CHLORIDE (test code=CL) 110 mEq/L 100-108 CARBON DIOXIDE (test code=CO2) 27 mEq/L 21-33 ANION GAP (test code=GAP) 8 0-20 GLUCOSE (test code=GLU) mg/dL 70-110 BLOOD UREA NITROGEN (test code=BUN) 17 mg/dL 7-18 GLOMERULAR FILTRATION RATE (test code=GFR) 95-105 CREATININE (test code=CREAT) mg/dL 0.6-1.3 CALCIUM (test code=CA) 7.6 mg/dL 8.0-10.5 [id number] 19:31:00* Test Item Value Reference Range Comments TROPONIN-I (test code=TROPI) 0.056 ng/mL 0.000-0.045 Negative: <=0.045 Positive: >=0.046 Correlation with serial results, other cardiac markers andclinical findings is necessary to determine the clinicalsignificance of this result. Results using different methodologies should not be comparedto one another as quantitative results may vary by method. [id number] 18:08:00* Test Item Value Reference Range Comments GLUBED (test code=GLUBED) 110 MG/DL 70-110 Performed by certified yarn mercerizer operator at [facility] [id number] 16:49:00* Test Item Value Reference Range Comments POTASSIUM (test code=K) 3.3 mEq/L 3.4-5.0 [id number] 12:07:00* Test Item Value Reference Range Comments GLUBED (test code=GLUBED) 123 MG/DL 70-110 Performed by certified yarn mercerizer operator at [facility] [id number] 07:02:00* Test Item Value Reference Range Comments VANCOMYCIN (test code=VANCO) 12.5 mcg/mL - XR CHEST 1 [id number] 06:59:00 FAX: Prakash Camacho MD [phone] [place]: St: ADM FAX: Juan David Jean DO [phone] FAX: Eleazar Edmonds I [phone] Name: SERA PASCAL JR [facility] : 1970 Age/S: 48/M [address] [place] [address] Unit #: [id number] Loc: [address] [place] [address] Phys: Prakash Camacho MD Acct: [id number] Dis Date: Status: ADM IN PH ONE #: [phone] Exam Date: 01/22/2019526 FAX #: [phone] Reason: resp failure EXAMS: CPT CODE: [id number] XR CHEST 1 V 41001 Chest, single view dated 01/22/2019. HISTORY: Sensory failure. Pulmonary edema. Comparison is made to a prior study dated 01/21/2019. The positioning of the endotracheal tube and right jugular central venous catheter has not significantly changed in the interim. There is been i nterval placement of a nasogastric tube whose tip is positioned near the G E junction and whose sidehole is positioned in the distal esophagus. The cardiomediastinal shadow is stable. Pulmonary vascular congestion and pul monary edema persists however has shown improvement. Bilateral pleural ef fusions are again identified with basilar atelectasis. IMP RESSION: 1. The tip of the nasogastric tube is positioned near the GE junction. 2. Persistent but improved pulmonary vascular congesti on and pulmonary interstitial edema. 3. Bilateral pleural effus ions with basilar compressive atelectasis. SL: 131 at 0659 Reported and signed by: Dante Celaya M.D. CC: Prakash Camacho MD; Juan David Mckeon DO; Eleazar Blair MD Technologist: Clarence Chu, RT(R); Reva lewis RT(R) Trnscrd Date/Time/By: 01/22/2019 (0659) : By: Callie Orig Print D/T: S: 01/22/2019 (0702) PAGE 1 Signed Report [id number] 06:47:00* Test Item Value Reference Range Comments GLUBED (test code=GLUBED) 153 MG/DL 70-110 Performed by certified yarn mercerizer operator at [facility] LIPOPROTEIN [id number] 06:02:00* Test Item Value Reference Range Comments LIPOPROTEIN LDL (test code=LDL) 104 mg/dL 0-100 <100 [id number] NEAR OPTIMAL/ABOVE [id number] [id number] HIGH>TC=472 VERY HIGH*Guidelines provided by the National Cholesterol EducationProgram Adult Treatment Panel III BASIC METABOLIC [id number] 05:27:00* Test Item Value Reference Range Comments SODIUM (test code=NA) 139 mEq/L 134-147 POTASSIUM (test code=K) 3.8 mEq/L 3.4-5.0 CHLORIDE (test code=CL) 111 mEq/L 100-108 CARBON DIOXIDE (test code=CO2) 24 mEq/L 21-33 ANION GAP (test code=GAP) 8 0-20 GLUCOSE (test code=GLU) 213 mg/dL 70-110 BLOOD UREA NITROGEN (test code=BUN) 21 mg/dL 7-18 GLOMERULAR FILTRATION RATE (test code=GFR) 65.2 95-105 Units of measure=ml/min/1.73 m2 CREATININE (test code=CREAT) 1.2 mg/dL 0.6-1.3 CALCIUM (test code=CA) 7.8 mg/dL 8.0-10.5 [id number] 05:27:00* Test Item Value Reference Range Comments PHOSPHOROUS (test code=PHOS) 3.9 MG/DL 2.5-4.9 [id number] 05:27:00* Test Item Value Reference Range Comments MAGNESIUM (test code=MAG) 2.20 mg/dL 1.8-2.4 [id number] 05:27:00* Test Item Value Reference Range Comments TROPONIN-I (test code=TROPI) 0.088 ng/mL 0.000-0.045 Negative: <=0.045 Positive: >=0.046 Correlation with serial results, other cardiac markers andclinical findings is necessary to determine the clinicalsignificance of this result. Results using different methodologies should not be comparedto one another as quantitative results may vary by method. LACTIC [id number] 05:22:00* Test Item Value Reference Range Comments LACTIC ACID (test code=LACT) 0.6 mmol/L 0.4-1.9 CBC W/AUTO [id number] 05:07:00* Test Item Value Reference Range Comments WHITE BLOOD CELL (test code=WBC) 7.72 x10 3/uL 4.5-11.0 RED BLOOD CELL (test code=RBC) 3.68 x10 6/uL 4.00-5.60 HEMOGLOBIN (test code=HGB) 9.3 g/dL 12.5-16.9 HEMATOCRIT (test code=HCT) 30.1 % 37.5-50.7 MEAN CELL VOLUME (test code=MCV) 81.8 fL 81.0-99.0 MEAN CELL HGB (test code=MCH) 25.3 pg 27.0-33.0 MEAN CELL HGB CONCETRATION (test code=MCHC) 30.9 g/dL 33.0-37.0 RED CELL DISTRIBUTION WIDTH CV (test code=RDW) 15.3 % 11.5-14.5 RED CELL DISTRIBUTION WIDTH SD (test code=RDW-SD) 46.0 fL 37.0-54.0 PLATELET COUNT (test code=PLT) 408 x10 3/uL 150-400 MEAN PLATELET VOLUME (test code=MPV) 9.9 fL 7.0-9.0 NEUTROPHIL % (test code=NT%) 73.8 % 56.0-77.0 IMMATURE GRANULOCYTE % (test code=IG%) 0.8 % 0.0-2.0 LYMPHOCYTE % (test code=LY%) 14.5 % 14.0-32.0 MONOCYTE % (test code=MO%) 8.3 % 4.8-9.0 EOSINOPHIL % (test code=EO%) 1.7 % 0.3-3.7 BASOPHIL % (test code=BA%) 0.9 % 0.0-2.0 NUCLEATED RBC % (test code=NRBC%) 0.0 % 0-0 NEUTROPHIL # (test code=NT#) 5.70 x10 3/uL 2.0-7.6 IMMATURE GRANULOCYTE # (test code=IG#) 0.06 x10 3/uL 0.00-0.03 LYMPHOCYTE # (test code=LY#) 1.12 x10 3/uL 1.0-3.8 MONOCYTE # (test code=MO#) 0.64 x10 3/uL 0.1-0.8 EOSINOPHIL # (test code=EO#) 0.13 x10 3/uL 0.0-0.2 BASOPHIL # (test code=BA#) 0.07 x10 3/uL 0.0-0.2 NUCLEATED RBC # (test code=NRBC#) 0.00 x10 3/uL 0.0-0.1 MANUAL DIFF REQUIRED (test code=MDIFF) NO [id number] 05:00:00* Test Item Value Reference Range Comments GLUBED (test code=GLUBED) 189 MG/DL 70-110 Performed by certified yarn mercerizer operator at [facility] ARTERIAL BLOOD [id number] 04:14:00* Test Item Value Reference Range Comments ARTERIAL BLOOD GAS PH (test code=PHA) 7.324 7.35-7.45 ARTERIAL BLOOD GAS PCO2 (test code=PCO2A) 38.7 mmHg 35-45 ARTERIAL BLOOD GAS PO2 (test code=PO2A) 133 mmHg 80-100 BICARBONATE TOTAL HCO3 (test code=HCO3) 20.1 mmol/L 22.0-26.0 BASE EXCESS (test code=TRENTON) -6.0 mmol/L -4-4 ABG O2 SATURATION (test code=SATA) 99 % 90-100 FIO2 (test code=FIO2A) 40 % ABG DELIVERY (test code=SEBASTIÁN) Vent ABG VENT MODE (test code=MODEA) AC v con ABG VENT RESP RATE (test code=RRA) 18 /MIN ABG TIDAL VOLUME (test code=TVA) 450 ml ABG PEEP (test code=PEEPA) 8 cmH2O Performed by certified yarn mercerizer operator at [facility] ABG TEMPERATURE (test code=TEMPA) 98.6 F ABG SITE (test code=SITEA) R Rad PREDICTED AA GRADIENT (test code=AP) 62 PREDICTED PO2 (test code=OP) 177 a/A RATIO (test code=RATIO) 0.56 TCO2 ARTERIAL (test code=TCO2A) 21 A-A GRADIENT (test code=AAGRADE) 106 LACTIC ACID [id number] 23:52:00* Test Item Value Reference Range Comments LACTIC ACID REPEAT (test code=LACTR) 1.2 mmol/l 0.4-1.9 URINALYSIS [id number] 21:18:00* Test Item Value Reference Range Comments UA COLOR (test code=COLU) YELLOW YEL/STRAW UA APPEARANCE (test code=APPU) SL CLOUDY CLEAR UA GLUCOSE DIPSTICK (test code=DGLUU) 3+ NEGATIVE UA BILIRUBIN DIPSTICK (test code=BILU) NEGATIVE NEGATIVE UA KETONE DIPSTICK (test code=KETU) NEGATIVE NEGATIVE UA SPECIFIC GRAVITY (test code=SGU) 1.015 1.005-1.030 UA BLOOD DIPSTICK (test code=TABITHA) NEGATIVE NEGATIVE UA PH DIPSTICK (test code=RAJESH) 6.0 5.0-7.0 UA PROTEIN DIPSTICK (test code=PROU) 3+ NEGATIVE UA UROBILINIOGEN DIPSTICK (test code=URO) 0.2 mg/dL 0.2-1.0 UA NITRITE DIPSTICK (test code=BRIE) NEGATIVE NEGATIVE UA LEUKOCYTE ESTERASE DIPSTICK (test code=LEUU) NEGATIVE NEGATIVE UA RBC (test code=RBCU) 0-3 RBC/HPF 0-3 UA WBC NO REFLEX (test code=WBCUCL) 4-9 WBC/HPF 0-3 UA BACTERIA (test code=BACU) TRACE /HPF NONE SEEN UA SQUAMOUS CELLS (test code=SQU) 0-5 /HPF NONE SEEN UA HYALINE CAST (test code=HYALU) 0-2 /LPF NONE SEEN UA MUCUS (test code=MUCU) TRACE /LPF NONE SEEN B-TYPE NATRIURETIC [id number] 21:02:00* Test Item Value Reference Range Comments B-TYPE NATRIURETIC PEPTIDE (test code=BNP) 1579.9 PG/ML 0-100 [id number] 20:51:00* Test Item Value Reference Range Comments GLUBED (test code=GLUBED) 233 MG/DL 70-110 Performed by certified yarn mercerizer operator at [facility] - XR CHEST 1 [id number] 20:29:00 FAX: Juan David Jean DO [phone] [place]: St: PRE FAX: Cornelius Galdamez MD [phone] Name: SERA PASCAL JR [facility] : 1970 Age/S: 48/M [address] [place] [address] Blvd Unit #: [id number] Loc: [place] [address] Phys: Cornelius Galdamez MD Acct: [id number] Dis Date: Status: PRE ER PHONE #: [phone] Exam Date: 01/21/20192023 FAX #: [phone] Reason: SOB EXAMS: CPT CODE: [id number] XR CHEST 1 V 65484 Limited portable AP chest, 2 radiographs. INDICATION: Shortness of breath. COMPARISON: 10/11/2013 chest radiograph. FINDINGS: Endotracheal tube tip projects approximately 6.4 cm above the shayy. Right neck vascular catheter tip projects over the lower third of the superior vena cava shadow. Stents or grafts are seen over the right subclavian region. Defibrillator pad projects over the right chest. Cardiomediastinal silhouette is normal in size. Ill-defined perihilar and infrahilar opacities are present bilaterally. Mild/moderate left costophrenic angle blunting. Minimal right costophrenic angle blunting/pleural thickening also present. Mediastinal wires are seen. IMPRESSION: 1. Predominantly perihilar opacities bilaterally li merle representing vascular congestion/edema. 2. Small left and possible minimal right pleural effusions. 3. If there is concern for pn eumothorax, upright radiograph should be obtained as this study was obta ined supine. 4. Support tubes and lines as described. SL: SG-H at 2028 Reported and signed by: Serafin Benitez M.D. CC: Juan David adams DO; Cornelius Galdamez MD Technologist: Beau Wall(Beau) Trnscrd Date/Time/By: 01/21/2019 (2028) : Walker y: [email or web address] Orig Print D/T: S: 01/21/2019 (2032) PAGE 1 Signed Report CBC W/AUTO [id number] 20:27:00* Test Item Value Reference Range Comments WHITE BLOOD CELL (test code=WBC) 11.69 x10 3/uL 4.5-11.0 RED BLOOD CELL (test code=RBC) 4.26 x10 6/uL 4.00-5.60 HEMOGLOBIN (test code=HGB) 10.7 g/dL 12.5-16.9 HEMATOCRIT (test code=HCT) 35.7 % 37.5-50.7 MEAN CELL VOLUME (test code=MCV) 83.8 fL 81.0-99.0 MEAN CELL HGB (test code=MCH) 25.1 pg 27.0-33.0 MEAN CELL HGB CONCETRATION (test code=MCHC) 30.0 g/dL 33.0-37.0 RED CELL DISTRIBUTION WIDTH CV (test code=RDW) 15.3 % 11.5-14.5 RED CELL DISTRIBUTION WIDTH SD (test code=RDW-SD) 46.3 fL 37.0-54.0 PLATELET COUNT (test code=PLT) 694 x10 3/uL 150-400 MEAN PLATELET VOLUME (test code=MPV) 10.1 fL 7.0-9.0 NEUTROPHIL % (test code=NT%) 59.1 % 56.0-77.0 IMMATURE GRANULOCYTE % (test code=IG%) 0.5 % 0.0-2.0 LYMPHOCYTE % (test code=LY%) 28.5 % 14.0-32.0 MONOCYTE % (test code=MO%) 6.5 % 4.8-9.0 EOSINOPHIL % (test code=EO%) 3.8 % 0.3-3.7 BASOPHIL % (test code=BA%) 1.6 % 0.0-2.0 NUCLEATED RBC % (test code=NRBC%) 0.0 % 0-0 NEUTROPHIL # (test code=NT#) 6.90 x10 3/uL 2.0-7.6 IMMATURE GRANULOCYTE # (test code=IG#) 0.06 x10 3/uL 0.00-0.03 LYMPHOCYTE # (test code=LY#) 3.33 x10 3/uL 1.0-3.8 MONOCYTE # (test code=MO#) 0.76 x10 3/uL 0.1-0.8 EOSINOPHIL # (test code=EO#) 0.45 x10 3/uL 0.0-0.2 BASOPHIL # (test code=BA#) 0.19 x10 3/uL 0.0-0.2 NUCLEATED RBC # (test code=NRBC#) 0.00 x10 3/uL 0.0-0.1 MANUAL DIFF REQUIRED (test code=MDIFF) NO ARTERIAL BLOOD [id number] 20:10:00* Test Item Value Reference Range Comments ARTERIAL BLOOD GAS PH (test code=PHA) 7.241 7.35-7.45 ARTERIAL BLOOD GAS PCO2 (test code=PCO2A) 58.2 mmHg 35-45 ARTERIAL BLOOD GAS PO2 (test code=PO2A) 505 mmHg 80-100 BICARBONATE TOTAL HCO3 (test code=HCO3) 25.0 mmol/L 22.0-26.0 BASE EXCESS (test code=TRENTON) -2.0 mmol/L -4-4 ABG O2 SATURATION (test code=SATA) 100 % 90-100 FIO2 (test code=FIO2A) 100 % ABG DELIVERY (test code=SEBASTIÁN) Vent ABG VENT MODE (test code=MODEA) AC v con ABG VENT RESP RATE (test code=RRA) 20 /MIN ABG TIDAL VOLUME (test code=TVA) 500 ml ABG PEEP (test code=PEEPA) 10 cmH2O Performed by certified yarn mercerizer operator at [facility] ABG TEMPERATURE (test code=TEMPA) 98.6 F ABG SITE (test code=SITEA) Other PREDICTED AA GRADIENT (test code=AP) 167 PREDICTED PO2 (test code=OP) 476 a/A RATIO (test code=RATIO) 0.79 TCO2 ARTERIAL (test code=TCO2A) 27 A-A GRADIENT (test code=AAGRADE) 138 TROPONIN-I [id number] 20:10:00* Test Item Value Reference Range Comments TROPONIN-I RAPID (test code=TROPIRAP) 0.01 ng/mL 0.00-0.08 Performed by certified yarn mercerizer operator at [facility] Negative: <=0.08 Positive: >=0.09An elevated troponin value alone is not sufficient todiagnose a myocardial infarction. Rather, the patient sclinical presentation (history, physical exam) and ECGshould be used in conjunction with troponin in thediagnostic evaluation of suspected myocardial infarction. Aserial sampling protocol is recommended to facilitate the identification of temporal changes in troponin levels characteristic of NE. LACTIC ACID [id number] 20:07:00* Test Item Value Reference Range Comments LACTIC ACID POC (test code=LACTP) 2.4 MMOL/L 0.90-1.70 Performed by certified yarn mercerizer operator at [facility] CHEMISTRY 8 [id number] 20:07:00* Test Item Value Reference Range Comments ISTAT-SODIUM (test code=NAP) MMOL/L 134-147 ISTAT-POTASSIUM (test code=KP) MMOL/L 3.4-5.0 ISTAT-CHLORIDE (test code=CLP) MMOL/L 100-108 ISTAT CARBON DIOXIDE (test code=ISTAT-CO2) mmol/L 21-33 ISTAT CALCIUM IONIZED (test code=ISTAT-CORY) MG/DL 1.12-1.32 ISTAT-GLUCOSE (test code=GLUP) MG/DL 70-110 ISTAT-BUN (test code=BUNP) MG/DL 7-18 BEDSIDE CREATININE (test code=CREATBED) MG/DL 0.6-1.3 GLOMERULAR FILTRATION RATE POC (test code=GFRBED) 58 ML/MIN CHEMISTRY 8 [id number] 20:07:00* Test Item Value Reference Range Comments ISTAT-SODIUM (test code=NAP) 138 MMOL/L 134-147 ISTAT-POTASSIUM (test code=KP) 4.3 MMOL/L 3.4-5.0 ISTAT-CHLORIDE (test code=CLP) 105 MMOL/L 100-108 Performed by certified yarn mercerizer operator at [facility] ISTAT CARBON DIOXIDE (test code=ISTAT-CO2) 26.0 mmol/L 21-33 ISTAT CALCIUM IONIZED (test code=ISTAT-CORY) 1.19 MG/DL 1.12-1.32 ISTAT-GLUCOSE (test code=GLUP) 294 MG/DL 70-110 ISTAT-BUN (test code=BUNP) 19 MG/DL 7-18 BEDSIDE CREATININE (test code=CREATBED) 1.4 MG/DL 0.6-1.3 GLOMERULAR FILTRATION RATE POC (test code=GFRBED) 58 ML/MIN
[2019-06-07] VITALS (8 sets, daily range): BP systolic 113–151; BP diastolic 69–89
[2019-06-07] MEDS ORDERED: HYDROCODONE/APAP 10MG-325MG TAB PO ONE
--- NOTE | 2019-06-07 00:16 | Diagnostic Imaging Report ---
CT Abdomen and Pelvis without contrast INDICATION: Fall, low back pain, ^LBP with left testicular pain TECHNIQUE: Thin collimation axial images obtained from the diaphragm to the level of the pubic symphysis without nonionic intravenous contrast. Dose reduction techniques used: Automated exposure control, adjustment of the mAs and/or kVp according to patient size, standardized low-dose protocol, and/or iterative reconstruction technique. RADIATION DOSE: Total DLP: 980.43 mGy*cm Estimated effective dose: (DLP x 0.015 x size factor) mSv CTDIvol has been reviewed. It is below the limits set by the Radiation Protocol Committee (RPC). COMPARISON: Report of CTA of the abdomen/pelvis 05/30/2015. Images are not available for comparison. ABDOMEN FINDINGS: Lung Bases: Bilateral posterior layering pleural effusions, measuring 1.2 cm on the right and 6.0 cm on the left with bilateral lower lobe atelectasis, left lung greater than right. The heart is mildly enlarged, particularly the left ventricle, with hypoattenuation of the cardiac chambers suggestive of anemia. Liver: Normal in attenuation without mass. Gallbladder: Present and appears normal. No ductal dilatation. Pancreas: Normal attenuation without mass. Spleen: Normal size without mass. Adrenal Glands: No evidence for mass. Kidneys: Right: Multiple intrarenal calcifications, the largest measuring 4 mm. No cortical mass or hydronephrosis Left: Calculi in the upper pole and interpolar regions measuring up to 3 to 4 mm. No cortical mass or hydronephrosis Lymph Nodes: No lymphadenopathy. Aorta: Postoperative changes suggestive of aortobifemoral bypass graft. There is a stent in the infrarenal aorta. There are stents in the common iliac arteries and a stent in a left common iliac bypass graft. There are at least 2 femoral to femoral bypass grafts and an abandoned right femoral bypass graft. PELVIS FINDINGS: Bowel: Stomach: Collapsed but otherwise normal. Small Bowel: Normal in caliber with normal wall thickness. Large Bowel: Mild burden of diverticulosis coli. No associated inflammation. Appendix: Not visualized and may be absent or collapsed. Bladder: Underdistended. Ureters: No ureteral dilatation or calculus. Peritoneum/retroperitoneum: No free fluid or fluid collection. Soft tissues: Significant diffuse subcutaneous edema. Small bilateral hydroceles. Bones: Mild degenerative changes of the spine. No focal osseous lesions. No evidence of fracture or dislocation. Visualized median sternotomy wires are intact. IMPRESSION: 1. Large left pleural effusion and significant subcutaneous edema. No ascites. 2. No evidence for bowel obstruction or inflammation. Diverticulosis coli. 3. Vascular bypass grafts as described above. 4. Bilateral intrarenal calculi without obstructive uropathy. 5. Cardiomegaly and suspected anemia. Signed by: Dr. Vivi Simon MD on 06/07/2019 12:12 AM
--- NOTE | 2019-06-07 00:18 | Diagnostic Imaging Report ---
History:Head injury Comparison studies: None Technique: Axial images were obtained from the skull base to the vertex. Coronal and sagittal images reconstructed from the axial data. Dose modulation, iterative reconstruction, and/or weight based adjustment of the mA/kV was utilized to reduce the radiation dose to as low as reasonably achievable. Intravenous contrast: None Findings: Scalp/skull: No abnormalities. Extra-axial spaces: No masses. No fluid collections. Brain sulci: Mildly prominent. Ventricles: Mild compensatory dilatation. No hydrocephalus. Parenchyma: Focal blunting the right occipital horn (series 401, image 63, series 2, image 16) may be a normal variant or the result of focal dysplastic changes. Subtle hypodensities in the supratentorial white matter are small vessel ischemic changes. No masses, hemorrhage, acute or chronic cortical vascular insults. Sellar/suprasellar region: No abnormalities. Craniocervical junction: Patent foramen magnum. No Chiari one malformation. Incidental findings: Subtle atherosclerotic calcifications in the carotid siphons . No sclerosing retention cyst in the left sphenoid sinus. Impression: No acute abnormalities. Chronic findings: 1. Mild generalized volume loss. 2. Mild supratentorial white matter small vessel ischemic changes. 3. Focal blunting of the right occipital horn may be a normal variant or the result of focal dysplastic changes Signed by: Dr. Ravi Gracia M.D. on 06/07/2019 12:14 AM
--- NOTE | 2019-06-07 02:10 | NUR ---
pt assigned a ms bed, will be transferred to floor when bloodwork has been resulted
[2019-06-07 02:17] LABS: BASOPHILS # (AUTO) 0.1 (0.0-0.1); BASOPHILS % 0.6 % (0.0-1.0); EOSINOPHILS # (AUTO) 0.1 (0.0-0.4); EOSINOPHILS % 1.5 % (0.0-6.0); HEMOGLOBIN 8.8 g/dL (14.0-18.0); LYMPHOCYTES # (AUTO) 1.4 (1.0-3.2); LYMPHOCYTES % 17.7 % (18.0-39.1); MEAN CORPUSCULAR HGB CONC 31.4 g/dL (31-35); MEAN CORPUSCULAR VOLUME 76.5 fL (81-99); MONOCYTES # (AUTO) 0.6 (0.2-0.8); MONOCYTES % 7.5 % (4.4-11.3); NEUTROPHILS # (AUTO) 5.7 (2.1-6.9); NEUTROPHILS % 72.2 % (38.7-80.0); PLATELET COUNT 446 x10e3/uL (140-360); RED BLOOD COUNT 3.66 x10e6/uL (4.3-5.7); RED CELL DISTRIBUTION WIDTH 16.3 % (11.7-14.4)
[2019-06-07 02:21] LABS: INR 1.01; PROTHROMBIN TIME 13.9 seconds (11.9-14.5)
[2019-06-07 02:22] LABS: PARTIAL THROMBOPLASTIN TIME 35.8 seconds (23.8-35.5)
[2019-06-07] MEDS: HYDROMORPHONE 1MG/1ML INJ IV PRN ×6 (02:22→23:33)
[2019-06-07] MEDS: ONDANSETRON HCL INJ 2MG/ML 2ML 2 MG/ML VIAL IV PRN ×4 (02:23→20:27)
[2019-06-07 02:28] LABS: ALANINE AMINOTRANSFERASE 11 IU/L (0-55); ALBUMIN 1.1 g/dL (3.5-5.0); ALBUMIN/GLOBULIN RATIO 0.3 (0.8-2.0); ALKALINE PHOSPHATASE 121 IU/L (40-150); ANION GAP 9.1 mmol/L (8-16); BLOOD UREA NITROGEN 11 mg/dL (7-26); BUN/CREATININE RATIO 10 (6-25); CALCIUM 7.8 mg/dL (8.4-10.2); CARBON DIOXIDE 23 mmol/L (22-29); CHLORIDE 110 mmol/L (98-107); CREATININE, SERUM 1.11 mg/dL (0.72-1.25); EST GLOMERULAR FILTRATION RATE > 60 ML/MIN (60-); GLUCOSE 178 mg/dL (74-118); POTASSIUM 3.1 mmol/L (3.5-5.1); SODIUM 139 mmol/L (136-145)
--- NOTE | 2019-06-07 04:14 | Diagnostic Imaging Report ---
EXAMINATION: CHEST SINGLE (PORTABLE) COMPARISON: CT abdomen/pelvis 06/06/2019 INDICATION: Fall from chair, shortness of breath ^sob ^[id number] ^[id number] DISCUSSION: Frontal view of the chest obtained at 0348 hours. HEART AND MEDIASTINUM: The heart is enlarged. Pulmonary vasculature is prominent. LINES: Central venous catheter terminates in the SVC. There are expandable stents in the right axillary vein, right subclavian vein, and proximal SVC. LUNGS/PLEURA: Right basilar atelectasis. Moderate left pleural effusion and underlying atelectasis or pneumonia. No pneumothorax. BONES AND SOFT TISSUES: Median sternotomy wires are intact. Mild degenerative changes of the AC joints. The soft tissues are normal. IMPRESSION: 1. Central venous catheter terminates in the SVC without pneumothorax. Moderate left pleural effusion with underlying atelectasis or pneumonia. 2. Mild right basilar atelectasis. 3. Cardiomegaly and vascular congestion. Signed by: Dr. Vivi Simon MD on 06/07/2019 4:10 AM
[2019-06-07] MEDS ORDERED: DEXTROSE 50% SYRINGE 50 ML IV PRN (04:30)
--- NOTE | 2019-06-07 05:00 | NUR ---
Patient received via stretcher from ER. AAO x 4. Patient had complaints of pain to his lower back (08/14). Will administer medication per eMAR. Respirations even and non-labored on 2L NC. Admission history obtained. Initial physical assessment performed. Patient stated he would have family member bring a list of his medications. Sutures noted on left stump (6) s/p surgery a month ago. Fall precautions implemented. Patient oriented to room, call light and plan of care. Patient instructed to call for assistance when needed. Call light within reach.
--- NOTE | 2019-06-07 06:14 | NUR ---
Dr. Stovall paged regarding "Routine Consult". Reason: Thoracentesis. Awaiting call back.
[2019-06-07] MEDS ORDERED: CEFEPIME 1GM/NS 0.9% 50 ML 50 ML IV SCH (06:30)
[2019-06-07] MEDS ORDERED: SODIUM CHLORIDE 0.9% 250ML 250 ML ONE (06:30)
[2019-06-07] MEDS ORDERED: CEFEPIME HCL 1 GM VIAL IV SCH (06:30)
--- NOTE | 2019-06-07 07:00 | NUR ---
Patient resting comfortably. Walking rounds done. Bed-side shift report given to oncoming nurse regarding patient's status.
[2019-06-07] MEDS ORDERED: INSULIN LISPRO 100 UNIT/1 ML 3ML VIAL SQ SCH (07:30)
--- NOTE | 2019-06-07 11:42 | NUR ---
WOUND CARE CONSULT FOR 49 YO MALE HX OF plural effusion, DYSPNA,BACK PAIN ZEINAB 18 ON CONSERVATIVE PUP STATUS AND INTERVENTIONS AND ALTERNATING PRESSURE SURFACE MATTRESS LABS: WBC-7.85 HGB_8.8 GLUCOSE-178 SKIN ASSESSMENT COMPLETE PATIENT PRESENTS WITH BILATERAL BKA RIGHT THIGH HEALING SURGICAL SITE 9CM X1.5CM SCABB LEFT THIGH HEALING SURGICAL SITE 7CM X.5CM X.1CM LEFT KNEE 11 SUTURES HEALING RIDGES NOTED WELL APPROXIMATED RECOMMEND REMOVAL IF IN AGREEMENT OF MD PLEASE RECONSULT WOUND CARE IF ANY ASSISTANCE WITH REMOVAL NEEDED RIGHT BUTTOCKS STAGE 2 ULCERATION REPORTED HISTORY FROM PATIENT X 2WEEKS RELATED TO MISSING CHAIR CUSHION MEASURES .4CM X.5CM X.2CM WITH PINK DULL BASE RECOMMENDATIONS: NURSING TO CONTINUE TO MAINTAIN CONSERVATIVE PUP STATUS AND INTERVENTIONS AND ALTERNATING PRESSURE MATTRESS MATTRESS NURSING TO CONTINUE TO ASSIST PATIENT OUT OF BED FOR MEALS AND MUCH TOLERATED NURSING TO CONTINUE TO ASSIST PATIENT NEEDED WITH MEALS AND NUTRITIONAL SUPPLEMENTS TO ENSURE PROPER REQUIREMENTS FOR HEALING NURSING TO CONTINUE TO OFFLOAD FEET AND HEELS NEEDED WITH PILLOW SUSPENSION WHEN IN BED NURSING TO CLEAN RIGHT THIGH HEALING SURGICAL SITE WITH NORMAL SALINE DAILY AND APPLY VENELEX OINTMENT AND LEAVE OPEN TO AIR NURSING TO CLEAN LEFT THIGH HEALING SURGICAL SITE WITH NORMAL SALINE DAILY AND APPLY VENELEX OINTMENT AND LEAVE OPEN TO AIR NURSING TO CLEAN RIGHT BUTTOCKS STAGE 2 ULCERATION WITH NORMAL SALINE DAILY AND APPLY VENELEX OINTMENT AND COVER WITH ALLEVYN FOAM DRESSING NURSING TO REMOVE SUTURES TO LEFT KNEE/STUMP AREA IF CLEARED BY Addendum: 06/07/19 at 1157 by Mykel Person RN Amended: Links added.
--- NOTE | 2019-06-07 12:22 | Consultation ---
DATE OF CONSULTATION: Pulmonary Consultation REASON FOR CONSULT: Pleural effusion. HISTORY OF PRESENT ILLNESS: Mr. Sutherland is a 49-year-old male, who was admitted here with complaints of shortness of breath. The patient underwent a chest x-ray, which showed evidence of pleural effusion and hence Pulmonary consultation was called. He is a 49-year-old male with bilateral amputation, came in because of shortness of breath. He denying any complaints of chest pain, nausea, vomiting. Last he was here was in [address] Alonzo's service, where he was admitted for critical limb ischemia and underwent bilateral amputation. He has history of type 2 diabetes, hypertension, coronary artery disease. He has been a smoker for 38 years. REVIEW OF SYSTEMS: GENERAL: Denies any fever, chills. HEAD: Denies any head trauma. ENT: Denies any earaches. CVS: Denies any chest pain. RESPIRATORY: Shortness of breath. GI: Denies any nausea or vomiting. The rest of the review of systems are negative except as in HPI. PAST MEDICAL HISTORY: Diabetes, coronary artery disease, peripheral arterial disease, history of CABG, history of aortobifemoral bypass in the past, bilateral lower leg amputation. FAMILY HISTORY: Significant for hypertension, diabetes. SOCIAL HISTORY: He is a smoker, has been a smoker for almost over 38 years. PHYSICAL EXAMINATION: VITAL SIGNS: Temperature 96.5, pulse of 98, blood pressure 149/77. HEENT: Head is atraumatic, normocephalic. NECK: Supple. CHEST: Clear to auscultation bilaterally. No wheezing. HEART: S1, S2 audible. ABDOMEN: Soft. EXTREMITIES: Bilateral lower leg amputee. LABORATORY DATA: White count of 7000, hemoglobin 8.8, platelets 446. Chemistry; sodium 139, potassium 3.1, INR is 1.01. ASSESSMENT: Mr. Sutherland is a 49-year-old male who presented to the emergency room with shortness of breath, found to have pleural effusion, current problems: 1. Pleural effusion. 2. History of coronary artery disease. 3. History of coronary artery bypass graft. 4. Bilateral lower leg amputee. 5. Ischemic cardiomyopathy. The patient echo showed EF of 40% in 2012. PLAN: I will request thoracentesis by Interventional Radiology. Continue the patient on oxygen as needed to keep the O2 saturation more than or equal to 92%. Further recommendation after reviewing the pleural fluid analysis likely the pleural effusion appears to be from heart failure because of the history. Thank you for this consult. MD GOLDEN Wilder/KEVINL /[id number]
[2019-06-07] MEDS ORDERED: ACETAMINOPHEN/CODEINE 300MG - 30MG TAB PO PRN (12:30)
[2019-06-07] MEDS ORDERED: POTASSIUM CHLORIDE 20 MEQ TAB CR PO SCH (12:30)
--- NOTE | 2019-06-07 14:10 | Diagnostic Imaging Report ---
EXAM: US TESTICULAR DATE: 06/07/2019 12:00 AM INDICATION: Testicular pain after fall COMPARISON: None FINDINGS: The right testicle measures 3.6 x 1.7 x 2.5 cm. No focal intratesticular lesion is identified. The epididymis measures 0.8 x 0.4 x 0.5 cm. Arterial and venous flow are preserved. There is no evidence for hyperemia. A small right-sided hydrocele is present. No varicocele is present. The left testicle measures 3.3 x 1.7 x 2.2 cm. No focal intratesticular lesion is identified. The epididymis measures 0.8 x 0.6 x 0.8 cm. Arterial and venous flow are preserved. There is no evidence for hyperemia. A trace left-sided hydrocele is present. No varicoceles present. Incidentally noted is subcutaneous edema within the inguinal regions. Nonspecific mildly prominent left inguinal lymph node noted which may be reactive. IMPRESSION: Small right and trace left hydrocele. Otherwise, unremarkable testicular ultrasound examination. Incidentally noted subcutaneous edema noted within the inguinal regions bilaterally Signed by: Dr. Haris Nicolas MD on 06/07/2019 2:07 PM
[2019-06-07] MEDS: PANTOPRAZOLE SOD 40 MG TABEC PO SCH (14:27)
[2019-06-07] MEDS: NICOTINE 21 MG/EA PATCH TOP SCH (14:27)
--- NOTE | 2019-06-07 14:45 | NUR ---
DR Knox has AP lateral X-ray to r/o fracture from fall, per radiology the CT Abd/pelvis they done when patient came here shows no fracture on bones, talked to Dr Knox then cancel the x-ray he ordered.
[2019-06-07 15:05] LABS: CLARITY,URINE SL CLOUDY (CLEAR); COLOR,URINE STRAW (YELLOW); KETONES,URINE NEGATIVE (NEGATIVE); LEUKOCYTE ESTERASE ,URINE TRACE (NEGATIVE); NITRITE,URINE NEGATIVE (NEGATIVE); PROTEIN,URINE DIPSTICK >=300 (NEGATIVE)
[2019-06-07 15:06] LABS: BILIRUBIN,URINE NEGATIVE (NEGATIVE); URINE UROBILINOGEN 0.2 mg/dL (0.2 - 1)
[2019-06-07 15:24] LABS: BACTERIA,URINE MODERATE /HPF; WBC,URINE (MAN) >50 /HPF (0-5)
--- NOTE | 2019-06-07 15:45 | NUR ---
Left lower back thoracentesis site is intact, no leakage, keep monitoring
--- NOTE | 2019-06-07 16:11 | Diagnostic Imaging Report ---
Ultrasound guided thoracentesis History: Left pleural effusion Technique: Written informed consent was obtained after discussing risks, benefits, and alternatives of the procedure with the patient. Patient was brought to the ultrasound suite and placed on the table in upright position. Pre-procedural ultrasound demonstrates a large left pleural effusion. Suitable percutaneous access site was chosen in the posterior right chest. Overlying skin was prepared and draped in the usual sterile fashion. Planned needle tract was anesthetized with dilute Lidocaine for local anesthesia. Using sonographic guidance, an 5 Irish Yueh needle was advanced into the left pleural effusion. Community Cultural Development Officer images saved in the patient's medical record. Needle was removed, and catheter was advanced. Subsequently, 2.0 L of clear yellow fluid was evacuated. Drainage was stopped prior to completion secondary to patient discomfort. Catheter was removed. Hemostasis achieved at puncture site by direct compression. The patient tolerated the procedure well. There were no complications. Post procedure chest radiograph was ordered. Impression: Technically successful sonographic guided left thoracentesis with evacuation of 2.0 L of fluid. Signed by: Dr. Haris Nicolas MD on 06/07/2019 4:08 PM
--- NOTE | 2019-06-07 16:15 | Diagnostic Imaging Report ---
EXAM: CHEST SINGLE (NOT PORTABLE) DATE: 06/07/2019 3:40 PM INDICATION: Status post thoracentesis COMPARISON: Earlier 06/07/2019 FINDINGS: There has been significant reduction of left-sided pleural fluid with improved aeration of the left lung. There is a trace residual left effusion present with increased left basilar opacity suggestive of atelectasis. There is no evidence of pneumothorax status post thoracentesis. The right lung is grossly clear. Right-sided central venous catheter identified in stable position. Stents noted overlying the region of the right axillary, subclavian, and innominate vessels. Median sternotomy wires again noted. The cardiomediastinal silhouette is stable in appearance. No acute osseous abnormality is identified. IMPRESSION: No evidence for pneumothorax status post left-sided thoracentesis. Trace residual left pleural effusion remains with left basilar opacity suggestive of atelectasis. Signed by: Dr. Haris Nicolas MD on 06/07/2019 4:12 PM
[2019-06-07] MEDS: INSULIN LISPRO 100 UNIT/1 ML 3ML VIAL SQ SCH ×2 (16:30→20:56)
[2019-06-07 17:00] LABS: BODY FLUID APPEARANCE CLEAR; BODY FLUID COLOR YELLOW; BODY FLUID TYPE PLEURAL
[2019-06-07 17:40] LABS: RBC,BODY FLUID 10 cells/uL; WBC,BODY FLUID 32 cells/uL
[2019-06-07 18:54] LABS: NEUTROPHILS,BODY FLUID 47 %
[2019-06-07 18:55] LABS: LYMPHOCYTES,BODY FLUID 17 %; MONO/MACROPHG,BODY FLUID 22 %; OTHER CELLS,BODY FLUID 14 %
--- NOTE | 2019-06-07 19:18 | NUR ---
Patient received sitting in bed. AAO x 4. Patient had no complaints of pain. No signs of respiratory distress. Bed locked and in lowest position. Bed rails up x 2. Patient instructed to call for assistance when needed. Call light within reach.
--- NOTE | 2019-06-07 19:51 | NUR ---
Patient complained about pain to lower back(09/13). Tylenol # 3 offered. Patient declined medication stating it makes him sick.
--- NOTE | 2019-06-07 23:00 | NUR ---
Patient refused wound dressing to bilateral thighs. Dressing to sacral region performed.
[2019-06-08] VITALS (7 sets, daily range): BP systolic 111–151; BP diastolic 73–97
[2019-06-08] MEDS: HYDROMORPHONE 1MG/1ML INJ IV PRN ×6 (02:30→21:14)
[2019-06-08] MEDS: ONDANSETRON HCL INJ 2MG/ML 2ML 2 MG/ML VIAL IV PRN ×3 (02:46→14:57)
--- NOTE | 2019-06-08 06:43 | NUR ---
Blood work from Port-A-Cath sent to lab for analysis.
--- NOTE | 2019-06-08 07:00 | NUR ---
BEDSIDE SHIFT REPORT RECEIVED FROM THE DELTA SYSTEM FREIGHT CAR CLEANER RN. CALL LIGHT WITH IN EASY REACH. BED IS LOW AND LOCKED. SIDE RAILS X2. INSTRUCTED PT TO USE CALL LIGHT FOR ALL THE NEEDS. EDUCATED PT ABOUT FALL PRECAUTIONS. PT VERBALIZED UNDERSTANDING. BED ALARM IS ON. PT DENIES NEEDS AT THIS TIME.
--- NOTE | 2019-06-08 07:00 | NUR ---
Shift report given to oncoming nurse.
[2019-06-08 07:01] LABS: BASOPHILS % 0.5 % (0.0-1.0); EOSINOPHILS # (AUTO) 0.1 (0.0-0.4); EOSINOPHILS % 1.1 % (0.0-6.0); HEMATOCRIT 25.6 % (38.2-49.6); HEMOGLOBIN 7.9 g/dL (14.0-18.0); LYMPHOCYTES # (AUTO) 0.9 (1.0-3.2); LYMPHOCYTES % 14.4 % (18.0-39.1); MEAN CORPUSCULAR HEMOGLOBIN 24.2 pg (28-32); MEAN CORPUSCULAR HGB CONC 30.9 g/dL (31-35); MEAN CORPUSCULAR VOLUME 78.3 fL (81-99); MONOCYTES # (AUTO) 0.4 (0.2-0.8); MONOCYTES % 6.2 % (4.4-11.3); NEUTROPHILS # (AUTO) 4.7 (2.1-6.9); NEUTROPHILS % 77.3 % (38.7-80.0); PLATELET COUNT 384 x10e3/uL (140-360); RED BLOOD COUNT 3.27 x10e6/uL (4.3-5.7); RED CELL DISTRIBUTION WIDTH 16.7 % (11.7-14.4)
[2019-06-08 07:04] LABS: INR 1.03; PROTHROMBIN TIME 14.1 seconds (11.9-14.5)
[2019-06-08 07:12] LABS: ALANINE AMINOTRANSFERASE 7 IU/L (0-55); ALBUMIN 0.9 g/dL (3.5-5.0); ALBUMIN/GLOBULIN RATIO 0.2 (0.8-2.0); ALKALINE PHOSPHATASE 110 IU/L (40-150); ANION GAP 8.7 mmol/L (8-16); BLOOD UREA NITROGEN 11 mg/dL (7-26); BUN/CREATININE RATIO 11 (6-25); CALCIUM 7.4 mg/dL (8.4-10.2); CARBON DIOXIDE 23 mmol/L (22-29); CHLORIDE 110 mmol/L (98-107); CREATININE, SERUM 1.03 mg/dL (0.72-1.25); EST GLOMERULAR FILTRATION RATE > 60 ML/MIN (60-); GLUCOSE 149 mg/dL (74-118); POTASSIUM 3.7 mmol/L (3.5-5.1); SODIUM 138 mmol/L (136-145)
[2019-06-08 07:13] LABS: % IRON SATURATION 8 % (15-50); IRON 9 ug/dL (65-175); TOTAL IRON BINDING CAPACITY 108 ug/dL (261-478); TRANSFERRIN 77 mg/dL (174-364)
[2019-06-08] MEDS: INSULIN LISPRO 100 UNIT/1 ML 3ML VIAL SQ SCH ×4 (07:30→21:00)
[2019-06-08] MEDS: PANTOPRAZOLE SOD 40 MG TABEC PO SCH (08:24)
[2019-06-08] MEDS: NICOTINE 21 MG/EA PATCH TOP SCH (08:25)
[2019-06-08] MEDS: BALSAM PERU/CASTOR OIL 60 GM OINT...G. TP SCH (08:25)
--- NOTE | 2019-06-08 11:05 | NUR ---
PT WANTS TO GO AMA. INFORMED THE SAME TO DR. WILLIAMSON AND ACOUSTICAL TILE DRILL PRESS OPERATOR.
--- NOTE | 2019-06-08 11:30 | NUR ---
DR. WILLIAMSON AWARE PT LEAVING AMA. PT HAS RIGHT PORTAL CATH WHILE ARRIVAL TO THE HOSPITAL. [place] PER DR. WILLIAMSON.
--- NOTE | 2019-06-08 12:05 | NUR ---
PAGED DR. WILLIAMSON AND INFORMED PT IS GOING TO STAY AND NO AMA PER THE PT.
--- NOTE | 2019-06-08 12:05 | NUR ---
PT CHANGED MIND. NO AMA HE WILL STAY PER THE PT.
[2019-06-08] MEDS ORDERED: HEPARIN 500 UNITS/5ML MDV INJ ONE (12:25)
[2019-06-08] MEDS: LIDOCAINE 4% PATCH TP SCH (13:21)
[2019-06-08] MEDS ORDERED: SODIUM CHLORIDE 0.9% 250ML 0 ML ONE (17:36)
[2019-06-08 17:39] LABS: CREATININE,URINE RANDOM 65.89 mg/dL (63-166)
[2019-06-08] MEDS: CEFTRIAXONE SOD 1 GM/NS 50 ML 50 ML IV SCH (17:43)
[2019-06-08] MEDS: CARVEDILOL 3.125 MG TAB PO SCH (17:43)
--- NOTE | 2019-06-08 17:48 | Consultation ---
DATE OF CONSULTATION: 06/08/2019 Cardiology Consultation CONSULTING PHYSICIAN: Dr. Marc Vance, Interventional Cardiology. REASON FOR CONSULTATION: Vascular disease management. HISTORY OF PRESENT ILLNESS: Mr. Sutherland is a 49-year-old man with history of tobacco abuse, hypertension, dyslipidemia, coronary artery disease status post aortocoronary bypass, peripheral arterial disease with previous lower extremity revascularization procedures including bypass to lower extremity and with history of bilateral yciha-hdw-igeg amputations, chronic systolic heart failure with known EF 40% to 45% since 2012, who reports returning from [place] this last week and presents via the emergency department with complaints of back discomfort, for which he is requesting pain medications. In the past visits to this hospital, the patient has had drug-seeking behavior. He was also noted to have on review of systems, some shortness of breath. He was noted to have a pleural effusion, for which thoracentesis was planned and performed. He denies any active chest discomfort and has otherwise no new complaints today other than requesting medications for his back pain. Back pain is described as lumbar mid center, moderate severity. REVIEW OF SYSTEMS: A 12-system review is negative except for as noted above. PAST MEDICAL HISTORY: As per HPI. SOCIAL HISTORY: Tobacco abuse. Alcohol use. Denies drug use. FAMILY HISTORY: Noncontributory. PHYSICAL EXAMINATION: VITAL SIGNS: Temperature 97.1, heart rate 105, blood pressure 151/97, respiratory rate 19, and O2 saturation 94%. BMI 27.7. GENERAL: No acute distress. Alert. NECK: No JVD. CHEST: With decreased breath sounds to left lower half of lung field. CARDIOVASCULAR: Regular rate and rhythm. Normal S1 and S2. No S3 or S4. Sternotomy scar. ABDOMEN: Soft and nontender. EXTREMITIES: Bilateral BKA stumps. SKIN: Tattoos throughout upper extremities. CARDIOVASCULAR MEDICATIONS: Reviewed. Nicotine patch in place. STUDIES: Reviewed. Sodium 138, potassium 3.7, chloride of 110, bicarbonate 23, BUN 11, creatinine 1.08, and glucose of 149. White blood cell 6.09, hemoglobin 7.9, and platelets 284. PT 14.1, PTT 35.8, and INR 1.03. AST 9, ALT 7, alkaline phosphatase 110, and total bilirubin is 0.1. ASSESSMENT AND PLAN: A 49-year-old man presents with left pleural effusion and complains of back discomfort, noted to have anemia, coronary artery disease, status post aortocoronary bypass, chronic systolic heart failure with acute decompensation, peripheral arterial disease, severe status post bilateral cwbsk-luv-kitk amputation and previous bypass lower extremities. RECOMMEND: 1. Consider lidocaine patch topical to lower back and further workup defer to primary service. 2. Statin. 3. Anti-platelet agents. 4. Beta-maninder and Entresto as blood pressure allows. 5. Consider anemia workup. 6. We will follow closely with you. Tobacco abuse cessation counseling provided. 7. The patient on imaging studies had previous vascular stents noted on chest x-ray through right axillary and subclavian region. The patient does not recall when these were done or for what reason. He does remember a history of swelling to right upper extremity. Suspect this may be related to prior venous events. At this point, no evidence of swelling or ischemic changes to upper extremities. Continue management as above. 8. Please call with any questions. MD SAGE Delatorre/MARIJA /[id number]
[2019-06-08 18:15] LABS: TOTAL PROTEIN, URINE 752.1 mg/dL (1-14)
[2019-06-08] MEDS: IRON SUCROSE 100 MG in SODIUM CHLORIDE 0.9% 100 ML 100 ML IV SCH (18:23)
--- NOTE | 2019-06-08 18:52 | NUR ---
BEDSIDE SHIFT REPORT GIVEN TO THE SPRAYER LEATHER RN. PT DENIED FURTHER NEEDS.
--- NOTE | 2019-06-08 19:10 | NUR ---
Patient received lying in bed. No acute distress noted. Iron sucrose 100 mg infusing at 105 mls /hr. Fall precautions implemented. Patient instructed to call for assistance when needed. Call light within reach.
[2019-06-08] MEDS: VALSARTAN/SACUBITRIL 24MG/26MG 1 EA TAB PO SCH ×2 (21:00→21:10)
[2019-06-08] MEDS: ATORVASTATIN 40 MG TAB PO SCH (21:10)
[2019-06-09] VITALS (8 sets, daily range): BP systolic 94–149; BP diastolic 68–97
[2019-06-09] MEDS: ONDANSETRON HCL INJ 2MG/ML 2ML 2 MG/ML VIAL IV PRN ×4 (00:16→22:00)
[2019-06-09] MEDS: HYDROMORPHONE 1MG/1ML INJ IV PRN ×8 (00:16→21:25)
--- NOTE | 2019-06-09 06:02 | NUR ---
Patient refused to be stuck by webbing tacker for blood draw. Blood specimen could not be drawn through Port-A-Cath.
--- NOTE | 2019-06-09 06:56 | NUR ---
Bedside report given to oncoming nurse.
--- NOTE | 2019-06-09 07:00 | NUR ---
BEDSIDE SHIFT REPORT RECEIVED FROM THE WEAPONS AND TACTICS INSTRUCTOR RN. CALL LIGHT WITH IN EASY REACH. BED IS LOW AND LOCKED. SIDE RAILS X2. INSTRUCTED PT TO USE CALL LIGHT FOR ALL THE NEEDS. EDUCATED PT ABOUT FALL PRECAUTIONS. PT VERBALIZED UNDERSTANDING. PT DENIES NEEDS AT THIS TIME.
[2019-06-09] MEDS: INSULIN LISPRO 100 UNIT/1 ML 3ML VIAL SQ SCH ×4 (07:30→22:08)
[2019-06-09] MEDS: PANTOPRAZOLE SOD 40 MG TABEC PO SCH (08:30)
[2019-06-09] MEDS: LIDOCAINE 4% PATCH TP SCH ×2 (08:43→15:21)
[2019-06-09] MEDS: VALSARTAN/SACUBITRIL 24MG/26MG 1 EA TAB PO SCH ×2 (08:43→22:06)
[2019-06-09] MEDS: CARVEDILOL 3.125 MG TAB PO SCH ×2 (08:43→17:42)
[2019-06-09] MEDS: NICOTINE 21 MG/EA PATCH TOP SCH (08:43)
[2019-06-09] MEDS: FUROSEMIDE 20 MG TAB PO SCH (08:43)
[2019-06-09] MEDS: BALSAM PERU/CASTOR OIL 60 GM OINT...G. TP SCH (08:43)
[2019-06-09] MEDS ORDERED: ASPIRIN 81 MG CHEW TAB PO SCH (09:00)
[2019-06-09] MEDS ORDERED: LIDOCAINE 4% PATCH TP SCH (09:30)
--- NOTE | 2019-06-09 11:30 | NUR ---
PT REFUSED BLOOD SUGAR CHECK. DR. WILLIAMSON INFORMED THE SAME.
--- NOTE | 2019-06-09 11:40 | NUR ---
DR. WILLIAMSON INFORMED PT LOW BP 94/68.
[2019-06-09] MEDS: CEFTRIAXONE SOD 1 GM/NS 50 ML 50 ML IV SCH (17:42)
[2019-06-09] MEDS: IRON SUCROSE 100 MG in SODIUM CHLORIDE 0.9% 100 ML 100 ML IV SCH (18:24)
--- NOTE | 2019-06-09 19:00 | NUR ---
BEDSIDE SHIFT REPORT GIVEN TO THE IT TRAINEE RN. PT DENIED FURTHER NEEDS.
--- NOTE | 2019-06-09 19:45 | NUR ---
Received patient from day nurse, patient is stable. safety and fall precautions maintained at this time: bed in lowest position and lcoked, needed items beside bed and call olvera placed close to patient, patient is currently stable will continue to monitor.
[2019-06-09] MEDS: ATORVASTATIN 40 MG TAB PO SCH (22:06)
[2019-06-09] MEDS: TEMAZEPAM 7.5 MG CAP PO PRN (22:06)
--- NOTE | 2019-06-09 22:12 | Progress Note ---
DATE: 06/09/2019 Cardiology Progress Note SUBJECTIVE: Back discomfort improved. Denies chest pain or shortness of breath today. OBJECTIVE: VITAL SIGNS: Temperature 97.5, heart rate of 100, blood pressure 144/95, respiratory rate is 18, and O2 saturation 96%. GENERAL: In no acute distress, alert. NECK: No JVD. CHEST: Clear to auscultation. CARDIOVASCULAR: Regular rate and rhythm. Normal S1 and S2. Systolic ejection murmur. ABDOMEN: Soft. Bowel sounds positive. EXTREMITIES: Bilateral BKA. Trace edema. CARDIOVASCULAR MEDICATIONS: Reviewed. Furosemide 20 mg daily, atorvastatin 40 mg at bedtime, carvedilol 3.125 mg b.i.d., Entresto 24/26 mg one every 12 hours, and subcu heparin p.r.n. for dialysis. STUDIES: Reviewed. Creatinine 1.03, hemoglobin 7.9, platelets and 384. ASSESSMENT AND PLAN: 1. 49-year-old man with severe vasculopath, known coronary artery disease, status post aortocoronary bypass, PAD with previous revascularizations to lower extremities, ending up with bilateral BKAs. 2. Drug-seeking behavior. 3. Diabetes, hypertension, and dyslipidemia. 4. Tobacco abuse. 5. Anemia. Recommend continue beta-maninder and Entresto, and adjust dose accordingly as tolerated. 6. Continue statin. 7. Anemia workup advised. 8. Echocardiogram with severe impairment of left ventricular systolic function, LVEF 25%. I have discussed this with the patient. We have advised him to continue optimal medical therapy for heart failure and after this reassessing candidacy for ICD implant once free to resume elective procedures from COVID-19 standpoint. Marc Stallworth MD AFV/MODL /[id number]
[2019-06-10] VITALS (8 sets, daily range): BP systolic 99–147; BP diastolic 64–89
[2019-06-10] MEDS: HYDROMORPHONE 1MG/1ML INJ IV PRN ×8 (00:27→21:40)
[2019-06-10] MEDS ORDERED: HYDROMORPHONE 1MG/1ML INJ IV STA (05:25)
--- NOTE | 2019-06-10 06:45 | NUR ---
dilaudid 0.5mg was wasted with nurse
--- NOTE | 2019-06-10 06:50 | NUR ---
patient endorsed to next shift for continuity of care.
--- NOTE | 2019-06-10 07:44 | NUR ---
patient complained that pain medication did not help him at 0500, Dr. Knox called and ordered one time dilaudid of 0.5mg iv
[2019-06-10] MEDS: BALSAM PERU/CASTOR OIL 60 GM OINT...G. TP SCH (08:59)
[2019-06-10] MEDS: CARVEDILOL 3.125 MG TAB PO SCH ×2 (08:59→16:46)
[2019-06-10] MEDS: VALSARTAN/SACUBITRIL 24MG/26MG 1 EA TAB PO SCH ×2 (08:59→20:43)
[2019-06-10] MEDS: NICOTINE 21 MG/EA PATCH TOP SCH (08:59)
[2019-06-10] MEDS: LIDOCAINE 4% PATCH TP SCH ×2 (08:59)
[2019-06-10] MEDS: FUROSEMIDE 20 MG TAB PO SCH (08:59)
[2019-06-10] MEDS: PANTOPRAZOLE SOD 40 MG TABEC PO SCH (08:59)
[2019-06-10] MEDS: ONDANSETRON HCL INJ 2MG/ML 2ML 2 MG/ML VIAL IV PRN ×2 (09:00→18:42)
[2019-06-10] MEDS: INSULIN LISPRO 100 UNIT/1 ML 3ML VIAL SQ SCH ×4 (09:00→21:00)
[2019-06-10] MEDS ORDERED: ALTEPLASE RECOMBINANT 2 MG/2 ML VIAL IV PRN ×2 (11:45→12:15)
[2019-06-10] MEDS ORDERED: KETOROLAC TROMETHAMINE 30 MG/ML VIAL IV NR (13:00)
[2019-06-10] MEDS: ALBUTEROL SULF 0.083% NEB SOLN 3 ML NEB NEB SCH ×2 (13:00→20:10)
--- NOTE | 2019-06-10 13:25 | NUR ---
Removed cath christiano. Did not have blood return.
--- NOTE | 2019-06-10 14:53 | NUR ---
aware one time dose of toradol did not help with pain. Informed cath christiano did not work. See orders.
--- NOTE | 2019-06-10 16:04 | NUR ---
Stitches to left knee removed as ordered. No abnormal drainage noted. Site clean, dry, and intact.
--- NOTE | 2019-06-10 16:40 | Diagnostic Imaging Report ---
EXAMINATION: CHEST 2 VIEWS INDICATION: ^s/p thorocentesis ^[id number] ^1610 ^Y COMPARISON: 06/07/2019 FINDINGS: PA and lateral views TUBES and LINES: Stable right IJ central line with tip projecting over inferior SVC. Stable vascular stent projecting over right upper chest. LUNGS: Lungs are well inflated. Central vascular congestion. PLEURA: No visible pneumothorax. Trace left pleural effusion, decreased from prior exam. HEART AND MEDIASTINUM: Enlarged cardiac silhouette. Median sternotomy wires are again seen. BONES AND SOFT TISSUES: No acute osseous lesion. Soft tissues are unremarkable. UPPER ABDOMEN: No free air under the diaphragm. IMPRESSION: Trace left pleural effusion, decreased from prior exam. Central vascular congestion and mild interstitial edema. Underlying pneumonia in the lower lung fraire cannot be excluded. No visible pneumothorax. Signed by: Dr. Heron Neri MD on 06/10/2019 4:37 PM
[2019-06-10] MEDS: IRON SUCROSE 100 MG in SODIUM CHLORIDE 0.9% 100 ML 100 ML IV SCH (16:46)
--- NOTE | 2019-06-10 17:34 | NUR ---
Notified Dr.O. Sanchez of xray results
--- NOTE | 2019-06-10 18:59 | NUR ---
Report given to oncoming nurse of patient's status. Resting in bed. No s/s of acute distress noted. Side rails upx3, call light within reach, bed alarm on.
--- NOTE | 2019-06-10 19:00 | NUR ---
Patient visited in room during nursing rounds. Patient alert and oriented x3. No distress noted. Patient has chronic and frequent back pain and is being medicated accordingly. Patient has bilateral knee amputation. Pt scheduled for procedure tomorrow (Circumcision, Cystoscopy, Retrograde Pyelogram, Indicated Procedures). Call olvera within reach. Will monitor pt closely.
[2019-06-10] MEDS: ATORVASTATIN 40 MG TAB PO SCH (20:43)
--- NOTE | 2019-06-10 20:45 | NUR ---
Patient aware and signed consent form for procedures (i.e. Circumcision, Cystoscopy, Retrograed Pyelogram, Indicated Procedures) scheduled tomorrow by Dr. Sawyer Sanchez.
--- NOTE | 2019-06-10 23:26 | Progress Note ---
DATE: 06/10/2019 Cardiology Progress Note SUBJECTIVE: Denies any chest pain or shortness of breath. Feels better today. OBJECTIVE: VITAL SIGNS: Temperature 98.1, heart rate 86, blood pressure 103/72, respiratory rate 20, O2 saturation 97% on room air. GENERAL: In no acute distress. NECK: No JVD. CHEST: Clear to auscultation. CARDIOVASCULAR: Regular rate and rhythm. Normal S1 and S2. Systolic ejection murmur. No S3. No S4. ABDOMEN: Soft. EXTREMITIES: Bilateral BKAs. Trace edema. CARDIOVASCULAR MEDICATIONS: Reviewed. Atorvastatin, furosemide, carvedilol, Entresto. STUDIES: Reviewed. Creatinine 1.03. Hemoglobin 7.9, white blood cell 6.09, and platelets 384. INR 1.03. ASSESSMENT: 1. A 49-year-old man, undergoing urologic evaluation, ierud-cp-dbohgeq systolic heart failure, now with improved volume status on optimal medical therapy from a systolic heart failure standpoint with beta-maninder and Entresto and adjusted dose. 2. Severe vasculopath with severe coronary artery disease, status post aortic coronary bypass and peripheral arterial disease with previous revascularizations with severe residual disease, status post bilateral ckptz-ihcx-lhzkfhmlvfg. 3. Active tobacco abuse. 4. Anemia. RECOMMENDATIONS: 1. Anemia workup. 2. The patient will have elevated risk for adverse cardiovascular outcomes with noncardiac surgery given his advanced cardiovascular comorbidities. However, at this point, no unstable cardiac conditions are identified. Beta-maninder optimization provided. The patient voices understanding of this. MD SAGE Delatorre/MARIJA /[id number]
[2019-06-11] VITALS (7 sets, daily range): BP systolic 114–169; BP diastolic 70–91
[2019-06-11] MEDS: HYDROMORPHONE 1MG/1ML INJ IV PRN ×8 (00:35→22:15)
[2019-06-11] MEDS: ALBUTEROL SULF 0.083% NEB SOLN 3 ML NEB NEB SCH ×4 (01:30→19:00)
[2019-06-11] MEDS ORDERED: ALTEPLASE RECOMBINANT 2 MG/2 ML VIAL IV ONE (05:00)
--- NOTE | 2019-06-11 05:40 | NUR ---
Attempted to draw blood from central line after cathflo put in 30 min past but still no blood draw. Tankage Grinder notified to attempt to do lab-draw peripherally.
--- NOTE | 2019-06-11 06:10 | NUR ---
Kera (intellectual property counsel) informed nurse she was able to draw blood for lab this morning.
[2019-06-11 06:37] LABS: ALBUMIN 1.1 g/dL (3.5-5.0); BILIRUBIN,DIRECT 0.1 mg/dL (0.0-0.5)
[2019-06-11 06:48] LABS: HIV 1&2 AB SCREEN NON-REACTIVE (NONREACTIVE)
[2019-06-11] MEDS: INSULIN LISPRO 100 UNIT/1 ML 3ML VIAL SQ SCH ×4 (07:30→21:10)
[2019-06-11] MEDS: LIDOCAINE 4% PATCH TP SCH ×2 (08:41→08:56)
[2019-06-11] MEDS: VALSARTAN/SACUBITRIL 24MG/26MG 1 EA TAB PO SCH ×2 (08:56→22:10)
[2019-06-11] MEDS: CARVEDILOL 3.125 MG TAB PO SCH ×2 (08:56→16:00)
[2019-06-11] MEDS: NICOTINE 21 MG/EA PATCH TOP SCH (08:56)
[2019-06-11] MEDS: FUROSEMIDE 20 MG TAB PO SCH (08:56)
[2019-06-11] MEDS: BALSAM PERU/CASTOR OIL 60 GM OINT...G. TP SCH (09:00)
[2019-06-11] MEDS: ONDANSETRON HCL INJ 2MG/ML 2ML 2 MG/ML VIAL IV PRN ×3 (09:23→23:18)
--- NOTE | 2019-06-11 11:37 | Diagnostic Imaging Report ---
EXAMINATION: Renal Doppler ultrasound. CLINICAL HISTORY :Nephrotic syndrome COMPARISON: CT abdomen/pelvis 06/07/2019 TECHNIQUE: Grayscale and color Doppler evaluation of the kidneys and bladder was performed in transverse and longitudinal planes. Doppler interrogation of the main, hilar, segmental and arcuate renal arteries bilaterally as well as evaluation of the aorta were performed. DISCUSSION: RIGHT KIDNEY: The right kidney measures 10.7 cm in length and shows normal echogenicity. The right renal cortex measures 1.8 cm. No hydronephrosis, shadowing calculi or solid mass lesions. . Right main renal artery PSV is 89. cm/sec. Highest right segmental artery PSV is 54.6 cm/sec. Arterial waveforms are normal. The right renal artery PSV/aortic PSV ratio is 0.7. LEFT KIDNEY: The left kidney measures 9.7 cm in length and shows normal echogenicity. The left renal cortex measures 2.0 cm. No hydronephrosis, shadowing calculi or solid mass lesions. Left main renal artery PSV is 124 cm/sec. Highest left segmental artery PSV is 162.3cm/sec. Arterial waveforms are normal. The left renal artery PSV/aortic PSV ratio is 1.0. Abdominal aortic PSV is 126.4 cm/sec. BLADDER: Unremarkable. IMPRESSION: Unremarkable renal doppler study. Signed by: Verónica Griffiths MD on 06/11/2019 11:33 AM
--- NOTE | 2019-06-11 12:20 | NUR ---
Patient left the floor to the OR
[2019-06-11] MEDS ORDERED: BUPIVACAINE 0.25% 30ML SDV INJ ONE (12:24)
[2019-06-11] MEDS ORDERED: NEOSTIGMINE 1 MG/ML 10ML VIAL ONE (12:24)
--- NOTE | 2019-06-11 13:30 | NUR ---
Pt was off the floor at this time and did not receive his q6 nebulizer treatment of Albuterol.
[2019-06-11] MEDS ORDERED: ACETAMINOPHEN/CODEINE 300MG - 30MG TAB PO PRN (14:15)
--- NOTE | 2019-06-11 14:50 | NUR ---
Patient is back to the floor s/p circumcision and cystoscopy and retrograde. Patient is alert and oriented x 3. Dressing around the penis is dry and intact. Dr. Knox is at the bedside speaking to the patient. Patient is asking for pain medication and was given a urinal to void. He has no other complaints at this time, call light in reach, bed alarm on.
[2019-06-11] MEDS ORDERED: KETOROLAC TROMETHAMINE 30 MG/ML VIAL IM SCH (15:00)
[2019-06-11] MEDS ORDERED: SEVOFLURANE INHAL SOLN 250 ML PEN BTL ONE (15:48)
[2019-06-11] MEDS ORDERED: LIDOCAINE HCL 2% LOCAL INJ 5 ML SDV VIAL INJ ONE (15:48)
[2019-06-11] MEDS ORDERED: ONDANSETRON HCL INJ 2MG/ML 2ML 2 MG/ML VIAL ONE (15:48)
[2019-06-11] MEDS ORDERED: PROPOFOL IV EMULSION 10 MG/ML 20 ML VIAL ONE (15:48)
[2019-06-11] MEDS ORDERED: FENTANYL CITRATE/PF 100MCG/2 ML INJ ONE (15:59)
[2019-06-11] MEDS ORDERED: MIDAZOLAM HCL 2 MG/2 ML VIAL ONE (15:59)
[2019-06-11] MEDS: PANTOPRAZOLE SOD 40 MG TABEC PO SCH (16:00)
--- NOTE | 2019-06-11 17:13 | Progress Note ---
DATE: 06/11/2019 Cardiology Progress Note SUBJECTIVE: Status post urologic procedure, recovering well. Denies chest pain or shortness of breath. OBJECTIVE: VITAL SIGNS: Temperature 98.4, heart rate 87, blood pressure 142/88, respiratory rate 20, and O2 saturation 98%. GENERAL: In no acute distress, alert. NECK: No JVD. CHEST: Clear to auscultation. CARDIOVASCULAR: Regular rate and rhythm. Normal S1 and S2. Systolic ejection murmur. ABDOMEN: Soft. Bowel sounds positive. EXTREMITIES: Bilateral BKA scars noted. CARDIOVASCULAR MEDICATIONS: Reviewed. 1. Atorvastatin 40 mg at bedtime. 2. Furosemide 20 mg daily. 3. Entresto 24/26 mg every 12 hours. 4. Carvedilol 3.125 mg every 12 hours. STUDIES: Reviewed. Sodium 138, potassium 3.7, chloride 110, bicarbonate 23, BUN 11, creatinine 1.03, and glucose 149. White blood cells 6, hemoglobin 7.9, and platelets 384. PT 14.1, PTT 35.8, and INR 1.03. AST 8, ALT 7, alkaline phosphatase 88, and total bilirubin is 0.1. ASSESSMENT: A 49-year-old man with acute on chronic severe systolic heart failure, coronary artery status post aortocoronary bypass, peripheral arterial disease with previous revascularizations to lower extremities and status post bilateral below-knee amputation, anemia, chronic back discomfort, tobacco abuse, and dyslipidemia. RECOMMENDATIONS: Continue current cardiovascular medications. If his blood pressure continues to remain over 120, we will consider up titrating further carvedilol to 6.25 mg every 12 hours starting tomorrow. We will reassess in a.m. Continue rest of cardiovascular medications. Marc Stallworth MD AFV/MODL /[id number]
--- NOTE | 2019-06-11 19:00 | NUR ---
Receive the patient in report.lyeing in the bed.gen.pain voiced 09/13.
[2019-06-11] MEDS: KETOROLAC TROMETHAMINE 30 MG/ML VIAL IV SCH (21:50)
[2019-06-11] MEDS: ATORVASTATIN 40 MG TAB PO SCH (22:00)
[2019-06-11] MEDS: TRIMETHOPRIM/SULFAMETHOXAZOLE 160-800 MG TAB PO SCH (22:00)
[2019-06-11] MEDS ORDERED: ALBUTEROL SULF 0.083% NEB SOLN 3 ML NEB NEB PRN (23:15)
--- NOTE | 2019-06-11 23:49 | Operative Report ---
DATE OF PROCEDURE: 06/11/2019 SURGEON: Sawyer Sanchez MD PREOPERATIVE DIAGNOSES: 1. Severe phimosis. 2. Urinary tract infection. 3. Microhematuria. POSTOPERATIVE DIAGNOSES: 1. Severe phimosis. 2. Urinary tract infection. 3. Microhematuria. OPERATIONS PERFORMED: 1. Circumcision. 2. Dorsal slit. 3. Regional nerve block (separate procedure performed for postoperative pain control and microdissection, performance of surgery which was done under general anesthesia). 4. Cystourethroscopy (separately performed to evaluate the lower urinary tract bleeding, microhematuria, and urinary tract infection). SENIOR DESIGNER: Otto Sanchez MD. ANESTHESIA: General. COMPLICATIONS: None. CLINICAL SUMMARY: Please refer to the patient's chart. I am not sure if the patient has severe phimosis with infection and hematuria. He has put off the circumcision quite sometime, however, not become problematic. It is causing him discomfort and pain. He understands the risks of anesthesia, which later increased and due to his multiple medical problems, we are doing this procedure during the perez virus pandemic, due to the fact that it is not allergic, it is causing infection, and complication in his injuring the patient's voiding due to the severity of the phimosis. It would make it challenging to place a Nation catheter if needed for urinary retention. OPERATIVE PROCEDURE IN DETAIL: Informed consent was verified. Ry Sutherland was properly identified, taken to the operating room, placed on the operating table in supine position. Anesthesia was uneventfully begun. The patient's genitalia were then shaved, prepared, and draped in usual sterile fashion. Marcaine without epinephrine was utilized to infiltrate subcutaneously circumferentially at the base of the penis as well as in the region of the dorsal penile nerves. This was done for postoperative pain control and not required for the actual performance of surgery, which was done under general anesthesia. Circumferential incision was then made over the perez of the glans penis. A dorsal slit was then performed. Area that was crushed with a straight clamp was then incised and this allowed us to retract the foreskin fully, and then the patient's genitalia were then re-prepared with Betadine. Secondary incision was then made approximately 4-5 mm away from the perez of the glans penis along the inner preputial skin sleeve. Circumcision was then performed. Foreskin was removed and Bovie electrocautery was utilized to achieve hemostasis. The patient's incision was then approximated with 4-0 chromic suture in running fashion. Frenuloplasty was also performed. The circumcision was made more complicated by the fact the patient's foreskin penile tissues were chronically scarred, thickened, and not as pliable as normal penile skin. Due to the fact the patient has no legs, putting in the lithotomy position proved rather challenging. Therefore, we elected to perform flexible cystoscopy just in order to rule out any immediate lower tract pathology that would need to be addressed urgently. We advanced the cystoscope into the patient's urethra. The urethra was unremarkable. The sphincteric region was remarkable. The prostate was significant for visually obstructing BPH. We entered the patient's bladder. The bladder was full of urine with whitish debris consistent with candidal urinary tract infection. We aspirated this urine and sent it for culture and sensitivity. We did perform panendoscopy of the urinary bladder, which showed diffuse mild erythema. No suspicious mucosal lesions were identified. There was no evidence of stones. The patient's bladder was drained. Cystoscope was withdrawn. Sterile dressings were applied of bacitracin ointment followed by Xeroform gauze, followed by loose-fitting Mikey, and the patient was uneventfully reversed from anesthesia and taken to recovery room in stable condition. There were no complications during the procedure. Estimated blood loss was minimal. We will follow up on the patient's urine culture and evaluate his voiding objectively a later time. Sawyer Sanchez MD [facility]/MODL /[id number]
[2019-06-12] VITALS (7 sets, daily range): BP systolic 110–118; BP diastolic 70–80
--- NOTE | 2019-06-12 00:11 | NUR ---
WAS IN THE UNIT.BREATHING TREATMENT CHANGED TO Q6H PRN.
[2019-06-12] MEDS: HYDROMORPHONE 1MG/1ML INJ IV PRN ×7 (01:20→20:35)
[2019-06-12] MEDS: KETOROLAC TROMETHAMINE 30 MG/ML VIAL IV SCH ×2 (03:33→11:13)
--- NOTE | 2019-06-12 05:12 | NUR ---
Patient is asking for sleep medicine now.educated that you should ask sleep medicine before midnight.
[2019-06-12 05:50] LABS: BASOPHILS % 0.6 % (0.0-1.0); EOSINOPHILS # (AUTO) 0.2 (0.0-0.4); HEMATOCRIT 24.7 % (38.2-49.6); HEMOGLOBIN 7.7 g/dL (14.0-18.0); LYMPHOCYTES # (AUTO) 1.2 (1.0-3.2); LYMPHOCYTES % 23.1 % (18.0-39.1); MEAN CORPUSCULAR HEMOGLOBIN 24.1 pg (28-32); MEAN CORPUSCULAR HGB CONC 31.2 g/dL (31-35); MEAN CORPUSCULAR VOLUME 77.2 fL (81-99); MONOCYTES # (AUTO) 0.4 (0.2-0.8); MONOCYTES % 8.3 % (4.4-11.3); NEUTROPHILS # (AUTO) 3.4 (2.1-6.9); NEUTROPHILS % 64.4 % (38.7-80.0); PLATELET COUNT 357 x10e3/uL (140-360); RED CELL DISTRIBUTION WIDTH 16.7 % (11.7-14.4)
[2019-06-12 06:02] LABS: ANION GAP 9.5 mmol/L (8-16); BLOOD UREA NITROGEN 13 mg/dL (7-26); BUN/CREATININE RATIO 13 (6-25); CALCIUM 7.4 mg/dL (8.4-10.2); CARBON DIOXIDE 27 mmol/L (22-29); CHLORIDE 107 mmol/L (98-107); CREATININE, SERUM 1.04 mg/dL (0.72-1.25); EST GLOMERULAR FILTRATION RATE > 60 ML/MIN (60-); GLUCOSE 148 mg/dL (74-118); POTASSIUM 3.5 mmol/L (3.5-5.1); SODIUM 140 mmol/L (136-145)
--- NOTE | 2019-06-12 06:30 | NUR ---
Patient is demanding to increase the dose of dilaudid and asking for norco po instead of tylenol #3.notified to .but md refused to increase dilaudid dose and started oxycodone 5mg Q4h.patient is sleeping now.
--- NOTE | 2019-06-12 07:06 | NUR ---
Bed side shift report given to oncoming RN.stable condition.
[2019-06-12] MEDS: INSULIN LISPRO 100 UNIT/1 ML 3ML VIAL SQ SCH ×4 (07:30→20:52)
[2019-06-12] MEDS: ONDANSETRON HCL INJ 2MG/ML 2ML 2 MG/ML VIAL IV PRN ×2 (07:30→17:42)
--- NOTE | 2019-06-12 10:35 | NUR ---
Pt. states he is "in pain" all the time. Provided hospitality and information on how to reach staff training and development manager, if needed. FABIENNE DRAPER Therapy Site Coordinator Spiritual Care Department O: [phone]
[2019-06-12] MEDS: FLUCONAZOLE 100 MG TAB PO SCH (11:13)
[2019-06-12] MEDS: PANTOPRAZOLE SOD 40 MG TABEC PO SCH (11:13)
[2019-06-12] MEDS: VALSARTAN/SACUBITRIL 24MG/26MG 1 EA TAB PO SCH ×2 (11:13→20:51)
[2019-06-12] MEDS: TRIMETHOPRIM/SULFAMETHOXAZOLE 160-800 MG TAB PO SCH ×2 (11:13→20:51)
[2019-06-12] MEDS: BALSAM PERU/CASTOR OIL 60 GM OINT...G. TP SCH (11:13)
[2019-06-12] MEDS: FUROSEMIDE 20 MG TAB PO SCH (11:13)
[2019-06-12] MEDS: LIDOCAINE 4% PATCH TP SCH ×2 (11:13)
[2019-06-12] MEDS: NICOTINE 21 MG/EA PATCH TOP SCH (11:13)
[2019-06-12] MEDS: CARVEDILOL 3.125 MG TAB PO SCH ×2 (11:13→17:43)
[2019-06-12] MEDS: OXYCODONE/ACETAMINOPHEN 5-325 1 EACH TABLET PO PRN (12:16)
[2019-06-12] MEDS: NEOMYCIN/POLYMYXIN/BACITRACIN 15 GM TUBE TOP SCH ×2 (12:25→16:39)
--- NOTE | 2019-06-12 16:03 | NUR ---
SPOKE WITH PT ABOUT HIS SITUATION. HE NOW STATES HIS TRAILER WAS GIVEN UP BEFORE HE LEFT TO [place] AND WHEN HE GOT BACK HE STATES IT WAS SOLD AND ALL OF HIS STUFF THROWN AWAY. HE GOES ON TO STATE THAT WHEN HE CAME BACK FROM HIS SISTERS IN [place] HE GOT A HOTEL AND THAT IS WHERE HE FELL. HE STATES HE HAS NOT RECEIVED ANY THERAPY FROM HIS [facility]OND [facility] AND JUST GOT THE ALEXEI OUT HERE. STATES HIS SOCIAL SECURITY CHECK GOT SENT BACK TO HIS ACCOUNT BECAUSE HE DIDN'T LEAVE A FORWARDING ADDRESS AND HAS TO WAIT 16 DAYS UNTIL THEY WILL RERELEASE IT. WILL ASK FOR THERAPY EVAL AND WOUND CARE NOTES TO SEE IF HE MAY QUALIFY FOR SNF FOR DECONDITIONING. WILL FOLLOW UP TOMORROW.
--- NOTE | 2019-06-12 17:12 | NUR ---
Nutrition Screen Note RD Recommendation for Physician: - Add Cardiac diet restrictions - Consider MVI with minerals once daily for skin integrity Plan of Care: RD following, monitoring for tolerance and adequacy Nutrition reason for involvement: New stage II PU documented Primary Diagnose(s): L pleural effusion, dyspnea, intractable pain PMH: acute on chronic CHF, CAD with bypass, PAD with revascularization, bilateral BKA, chronic back pain, dyslipidemia Ht: 73 in Wt: 210 lb BMI: 27.7 kg/m2 IBW: 156 lb- adjusted for bilateral BKA RD Assessment: (06/11) 49 YOM admitted for L PE, dyspnea, and intractable pain. Pt evaluated today per newly documented stage II sacral PU. Contacted pt via phone, did not answer x 2 calls. Per chart no reported poor intake or wt loss upon admit. Pt eating 75-100% of meals and no GI distress documented. Chart reviewed. Labs and meds reviewed. Will continue to monitor. Current Diet: Regular Malnutrition Evaluation (06/12/19) The patient does not meet criteria for a specified degree of malnutrition at this time. Will re-evaluate at follow-up as appropriate. Unable to complete assessment at this time. Energy intake: Good intake currently Weight loss: none reported on admit Fat loss: unable to evaluate Muscle loss: unable to evaluate Supporting Evidence: Fluid accumulation: none recorded Functional Status: not assessed Diet Education Needs Assessment: Diet education indicated, not appropriate at this time. Diet tolerance: tolerating po Nutrition Care Level: Low Signed: Greta Jacob RD, LD, [facility]
--- NOTE | 2019-06-12 19:00 | NUR ---
Received the patient in report.sitting in the bed.stable condition.
--- NOTE | 2019-06-12 19:12 | Progress Note ---
DATE: 06/12/2019 Cardiology Progress Note SUBJECTIVE: Denies chest pain or shortness of breath. No complaints today. Status post wound dressings for phimosis surgery. OBJECTIVE: VITAL SIGNS: Temperature 97.4, heart rate 92, blood pressure 117/71, respiratory rate 18, and O2 saturation 92%. GENERAL: No acute distress. NECK: No JVD. CHEST: Clear to auscultation. CARDIOVASCULAR: Regular rate and rhythm. Normal S1 and S2. No S3 or S4. Sternotomy scar. ABDOMEN: Soft. Bowel sounds positive. EXTREMITIES: Trace edema. Bilateral BKA. CARDIOVASCULAR MEDICATIONS: Reviewed. Atorvastatin 40 mg at bedtime, furosemide 20 mg daily, carvedilol 3.125 mg b.i.d., and Entresto 24/26 mg every 12 hours. STUDIES: Reviewed. Sodium 140, potassium 3.5, chloride 107, bicarbonate 27, BUN 13, creatinine 1.04, and glucose 148. White blood cells 5.2, hemoglobin 7.7, and platelets 357. INR 1.03, PT 14.1, and PTT 35.8. AST 8, ALT 7, alkaline phosphatase 88, and total bilirubin 0.1. ASSESSMENT AND PLAN: A 49-year-old man with chronic systolic heart failure, anemia, coronary artery disease, status post bypass, peripheral vascular disease with prior revascularizations, status post bilateral below-knee amputation, chronic systolic heart failure. RECOMMEND: 1. Monitor H and H and anemia workup. 2. Up titrate carvedilol to 6.25 mg every 12 hours. 3. Continue Entresto at current dose. 4. Continue statin at current dose. 5. Diuretics p.r.n. 6. Aspirin once okay with rest of treating providers and pending anemia workup and advised at 81 mg daily. MD SAGE Delatorre/MARIJA /[id number]
[2019-06-12] MEDS: ATORVASTATIN 40 MG TAB PO SCH (20:51)
[2019-06-13] VITALS (8 sets, daily range): BP systolic 99–145; BP diastolic 61–92
[2019-06-13] MEDS: ONDANSETRON HCL INJ 2MG/ML 2ML 2 MG/ML VIAL IV PRN ×3 (00:05→18:00)
[2019-06-13] MEDS: HYDROMORPHONE 1MG/1ML INJ IV PRN ×5 (00:10→18:00)
[2019-06-13] MEDS ORDERED: DIGOXIN INJ 0.25 MG/ML 2 ML AMP IV ONE (04:30)
--- NOTE | 2019-06-13 07:00 | NUR ---
Bed side shift report given to oncoming rn.stable condition.
--- NOTE | 2019-06-13 07:00 | NUR ---
RCD PT AT BED PT IS ALERT AND ORIENTED PT RESTING ON BED IV PATENT BY SALINE FLUSH BED LOW AND LOCKED CALL LIGHT IN REACH
[2019-06-13] MEDS: PANTOPRAZOLE SOD 40 MG TABEC PO SCH (07:30)
[2019-06-13] MEDS: INSULIN LISPRO 100 UNIT/1 ML 3ML VIAL SQ SCH ×4 (07:30→21:00)
[2019-06-13] MEDS: VALSARTAN/SACUBITRIL 24MG/26MG 1 EA TAB PO SCH ×2 (09:00→22:24)
[2019-06-13] MEDS: FUROSEMIDE 20 MG TAB PO SCH (09:00)
[2019-06-13] MEDS: BALSAM PERU/CASTOR OIL 60 GM OINT...G. TP SCH (09:00)
[2019-06-13] MEDS: CARVEDILOL 3.125 MG TAB PO SCH ×2 (09:00→16:47)
[2019-06-13] MEDS: TRIMETHOPRIM/SULFAMETHOXAZOLE 160-800 MG TAB PO SCH ×2 (09:00→22:24)
[2019-06-13] MEDS: LIDOCAINE 4% PATCH TP SCH ×2 (09:00)
[2019-06-13] MEDS: FLUCONAZOLE 100 MG TAB PO SCH (09:00)
[2019-06-13] MEDS: NEOMYCIN/POLYMYXIN/BACITRACIN 15 GM TUBE TOP SCH ×2 (09:00→16:47)
[2019-06-13] MEDS: NICOTINE 21 MG/EA PATCH TOP SCH (09:00)
--- NOTE | 2019-06-13 15:21 | NUR ---
PT REQUESTED ONE MORE DOSE PAIN MEDS SO PAGED DR WILLIAMSON TO NOTIFY THAT
--- NOTE | 2019-06-13 16:13 | Progress Note ---
DATE: 06/13/2019 Cardiology Progress Note SUBJECTIVE: Denies any chest pain or shortness of breath. OBJECTIVE: VITAL SIGNS: Temperature 95.8, heart rate 93, blood pressure 128/86, respiratory rate 20, O2 saturation 97%. GENERAL: In no acute distress, alert. NECK: No JVD. CHEST: Clear to auscultation. CARDIOVASCULAR: Regular rate and rhythm. Normal S1, S2. ABDOMEN: Soft. Bowel sounds positive. EXTREMITIES: Trace edema. Bilateral BKA. Sternotomy scar noted as well as scars to lower extremities from previous revascularizations. CARDIOVASCULAR MEDICATIONS: Reviewed. Atorvastatin 40 mg at bedtime, nicotine patch 21 mg daily, carvedilol 6.25 mg b.i.d., Entresto advised. We will coordinate care with Nephrology. Aspirin advised 81 mg daily pending any new workup. LABORATORY DATA: Studies reviewed. Creatinine 1.04. White blood cells 5.2, hemoglobin 7.7, platelets 357. INR 1.03. AST 8, ALT 7, and alkaline phosphatase 88. ASSESSMENT: A 49-year-old man with anemia; phimosis, status post treatment by Urology, severe coronary artery disease, status post aortocoronary bypass, peripheral arterial disease with previous revascularizations and status post bilateral below knee amputation, tobacco abuse, hypertension. RECOMMENDATIONS: 1. Continue current cardiovascular medications. We will coordinate with Nephrology. Possibility of resuming Entresto. 2. Aspirin 81 mg daily once okay with other treating physicians. Marc Stallworth MD AFKamari/MARIJA /[id number]
--- NOTE | 2019-06-13 18:42 | NUR ---
PT RESTING ON BED BED SIDE REPORT GIVEN TO ONCOMING NURSE
[2019-06-13] MEDS ORDERED: VALSARTAN/SACUBITRIL 24MG/26MG 1 EA TAB PO SCH (21:00)
[2019-06-13] MEDS: TEMAZEPAM 7.5 MG CAP PO PRN (22:15)
[2019-06-13] MEDS: OXYCODONE/ACETAMINOPHEN 5-325 1 EACH TABLET PO PRN (22:15)
[2019-06-13] MEDS: ATORVASTATIN 40 MG TAB PO SCH (22:24)
[2019-06-14] MEDS: ONDANSETRON HCL INJ 2MG/ML 2ML 2 MG/ML VIAL IV PRN ×2 (00:05→06:01)
[2019-06-14] MEDS: HYDROMORPHONE 1MG/1ML INJ IV PRN ×2 (00:05→06:01)
[2019-06-14 00:15] VITALS: BP 107/71
[2019-06-14 05:00] VITALS: BP 153/96
[2019-06-14 07:55] VITALS: BP 118/85
--- NOTE | 2019-06-14 07:58 | NUR ---
SPOKE WITH PT, SIGNED CHOICE FOR [facility] AND IMM LETTER, FILED IN CHART AND LEFT COPY FOR PT AT BEDSIDE. COMPLETING THE PAS[facility] RTF AND FAXING CLINICALS TO FACILITY AT [phone]
[2019-06-14] MEDS: LIDOCAINE 4% PATCH TP SCH ×2 (08:59→09:02)
[2019-06-14] MEDS: BALSAM PERU/CASTOR OIL 60 GM OINT...G. TP SCH (09:00)
[2019-06-14] MEDS: NEOMYCIN/POLYMYXIN/BACITRACIN 15 GM TUBE TOP SCH (09:00)
[2019-06-14] MEDS: PANTOPRAZOLE SOD 40 MG TABEC PO SCH (09:01)
[2019-06-14] MEDS: TRIMETHOPRIM/SULFAMETHOXAZOLE 160-800 MG TAB PO SCH (09:01)
[2019-06-14] MEDS: FLUCONAZOLE 100 MG TAB PO SCH (09:02)
[2019-06-14] MEDS: FUROSEMIDE 20 MG TAB PO SCH (09:02)
[2019-06-14] MEDS: VALSARTAN/SACUBITRIL 24MG/26MG 1 EA TAB PO SCH (09:02)
[2019-06-14] MEDS: NICOTINE 21 MG/EA PATCH TOP SCH (09:02)
[2019-06-14] MEDS: CARVEDILOL 3.125 MG TAB PO SCH (09:02)
[2019-06-14 09:07] VITALS: BP 118/85
[2019-06-14] MEDS: INSULIN LISPRO 100 UNIT/1 ML 3ML VIAL SQ SCH ×2 (09:58→12:03)
--- NOTE | 2019-06-14 10:00 | NUR ---
DR. WILLIAMSON AT BEDSIDE NEW ORDERS NOTED.
--- NOTE | 2019-06-14 10:38 | NUR ---
[facility] DISCHARGE INFORMATION PATIENT HAS BEEN ACCEPTED TO: NAME: [facility] ADDRESS: [id number] [facility] ACCEPTING FIELD SUPPORT TECHNICIAN: LISET DIGGS MD: HOANG ROOM: 309 NURSE CALL REPORT TO: [phone] IMM SIGNED AND OBTAINED (if applicable): IMM THE FOLLOWING DOCUMENTS MUST ACCOMPANY PATIENT FOR TRANSFER: COPIED CHART: PACKET
--- NOTE | 2019-06-14 11:45 | NUR ---
DILAUDID 0.5MG IV GIVEN ORDERED.
[2019-06-14 11:53] VITALS: BP 106/77
[2019-06-14] MEDS ORDERED: HYDROMORPHONE 1MG/1ML INJ IV SCH (12:15)
--- NOTE | 2019-06-14 12:15 | NUR ---
DISCHARGE INSTRUCTIONS GIVEN TO THE PATIENT. RX GIVEN.
--- NOTE | 2019-06-14 12:30 | NUR ---
DR. CARDOSO AT BEDSIDE. REPORT CALLED TO [facility]. REPORT CALLED TO KEENA GONZALEZ LVN. AWAITING FOR AMBULANCE TO TRANSFER PT.
--- NOTE | 2019-06-14 13:00 | NUR ---
IV SITE DC'ED. PT TOLERATED WELL.
--- NOTE | 2019-06-14 15:30 | NUR ---
PT DC'ED TO [facility]. PT TRANSFERED VIA AMBULANCE. PT HAS ALL PERSONAL BELONGINGS. DISCHARGE INSTRUCTIONS GIVEN TO THE PATIENT ALONG WITH RX.
--- NOTE | 2019-06-14 17:37 | Discharge Summary ---
FINAL DIAGNOSES: Fall with severe left lower back contusion and left testicular contusion. SECONDARY DIAGNOSES: 1. Acute systolic congestive heart failure exacerbation with left pleural transudative effusion. 2. Severe phimosis. 3. Nephrotic syndrome. 4. Iron deficiency anemia. 5. Severe peripheral vascular disease with bilateral [id number] amputation. 6. Chronic pain syndrome. CONSULTANTS: 1. Dr. Sanchez, Urology. 2. Dr. Stovall, Pulmonary. 3. Dr. Green, Renal. 4. Dr. Vance, Cardiology. PROCEDURES/STUDIES PERFORMED: 1. Echocardiogram. 2. Left-sided thoracentesis. 3. Circumcision. HISTORY: Per H and P. HOSPITAL COURSE: The patient was admitted with severe left lower back pain, the patient was on IV Dilaudid for that, subsequently a lidocaine patch and IV Toradol, which helped him. Subsequently, the patient also had a left thoracentesis for acute systolic congestive heart failure, the patient's breathing is better afterwards. Given severe phimosis, the patient underwent circumcision per Urology, today is postoperative day #3. The patient was also evaluated by Nephrology for his nephrotic syndrome. The patient also received iron infusion for iron deficiency anemia. The patient was seen and examined today, it took 32 minutes total to discharge this patient. The patient will be discharged to [facility]. CONDITION ON DISCHARGE: Improved. DISCHARGE MEDICATIONS: Please see medication reconciliation form. Yiching MD BEATA Longoria/MARIJA /[id number]
--- NOTE | 2019-06-14 18:52 | Progress Note ---
DATE: 06/14/2019 Cardiology Progress Note SUBJECTIVE: No complaints. OBJECTIVE: VITAL SIGNS: Temperature 97.2, heart rate 83, blood pressure 106/77, respiratory rate 18, and O2 saturation 94%. GENERAL: In no acute distress, alert. NECK: No JVD. CHEST: Clear to auscultation. CARDIOVASCULAR: Regular rate and rhythm with normal S1 and S2. ABDOMEN: Soft. Bowel sounds positive. EXTREMITIES: No edema. Bilateral BKA. Wounds/scars to lower extremities. CARDIOVASCULAR MEDICATIONS: Reviewed. 1. Nicotine patch. 2. Entresto 24/26 mg every 12 hours. 3. Furosemide 20 mg daily. 4. Atorvastatin 40 mg at bedtime. 5. Carvedilol 6.25 mg b.i.d. 6. Aspirin 81 mg daily. STUDIES: Reviewed. Potassium 3.5 and creatinine 1.04. White blood cells 5.2, and platelets 357. INR 1.03. ASSESSMENT: A 49-year-old man with chronic systolic heart failure, coronary artery disease, peripheral arterial disease, anemia RECOMMENDATIONS: 1. Continue current cardiovascular medications. 2. The patient reports absence of any gross bleeding. Monitor anemia as outpatient. The patient being transferred to SNF. Outpatient followup advised in 4-6 weeks. MD SAGE Delatorre/MARIJA /[id number]
[2019-06-15] MEDS ORDERED: ASPIRIN 81 MG ENTERIC COATED PO SCH (09:00)
[2019-06-15] MEDS ORDERED: ASPIRIN 325 MG TAB PO SCH (09:00)
== END 2019-06-14 15:38 | DRG 292 ==
LOC: ER 22:50 → ERHOLD 06-07 00:31 → MED/SURG2 06-07 04:27 → OBSVTOIN 06-07 12:29
PROVIDERS: ADMIT Internal Medicine; ATTEND Internal Medicine
PROC: 0W9B3ZZ Drainage of Left Pleural Cavity, Percutaneous Approach (ICD-10-PCS; principal; 2019-06-07)
PROC: 0TJB8ZZ Inspection of Bladder, Via Natural or Artificial Opening Endoscopic (ICD-10-PCS; 2019-06-11)
PROC: 0VTTXZZ Resection of Prepuce, External Approach (ICD-10-PCS; 2019-06-11 12:00)
DX: I11.0 Hypertensive heart disease with heart failure (principal); J90 Pleural effusion, not elsewhere classified; I50.23 Acute on chronic systolic (congestive) heart failure; D50.9 Iron deficiency anemia, unspecified; I25.10 Atherosclerotic heart disease of native coronary artery without angina pectoris; I73.9 Peripheral vascular disease, unspecified; Z76.5 Malingerer [conscious simulation]; N47.1 Phimosis; G89.4 Chronic pain syndrome; Z89.512 Acquired absence of left leg below knee; Z89.511 Acquired absence of right leg below knee; N05.9 Unspecified nephritic syndrome with unspecified morphologic changes; E11.51 Type 2 diabetes mellitus with diabetic peripheral angiopathy without gangrene; Z95.1 Presence of aortocoronary bypass graft; I25.5 Ischemic cardiomyopathy; F17.200 Nicotine dependence, unspecified, uncomplicated; D64.9 Anemia, unspecified; E78.5 Hyperlipidemia, unspecified; W19.XXXA Unspecified fall, initial encounter; R31.29 Other microscopic hematuria
CPT/HCPCS: 32555; 36415; 70450; 71045; 71046; 74176; 74470; 76770; 76870; 80048; 80053; 80076; 81001; 82570; 82948; 83540; 83615; 84156; 84157; 84443; 84466; 85025; 85610; 85730; 86039; 86160; 86431; 86592; 86803; 87070; 87086; 87205; 87390; 88304; 88305; 88342; 89051; 93306; 93976; 94640; 97139; 99251; 99284; G0433; G0435; J0692; J0696; J1170; J1756; J1885; J2001; J2250; J2405; J2710; J2997; J3010; J7050